=== PATIENT | female | born 1945 | race Caucasian/White ===

== ENCOUNTER → 2017-11-08 15:08 | Outpatient (CLI) | payer MEDICARE, OTHER, SELFPAY ==
[2017-11-08 17:33] LABS: Hematocrit 40.2 % (37-47); Hemoglobin 12.8 g/dl (12.0-15.0); Mean Corp Hgb Conc 31.8 g/gl (32-36); Mean Corpuscular Hgb 29.8 pg (27.0-32.0); Mean Corpuscular Volume 93.7 fL (81-99); Mean Platelet Vol. 10.5 fl (6.2-12.0); Platelet Count 243 K/mm3 (150-450); RBC Distribution Width CV 12.8 % (11.6-14.6); RBC Distribution Width SD 43.8 fl (35.1-43.9); Red Blood Count 4.29 M/mm3 (4.2-5.4); White Blood Count 7.3 K/mm3 (4.4-11.0)
[2017-11-08 17:43] LABS: Prothrombin Time (Protime)PT. 12.8 SECONDS (11.7-14.9)
[2017-11-08 17:44] LABS: Partial Thromboplast Time 31.8 Seconds (24.1-36.2)
[2017-11-08 17:56] LABS: AST(SGOT) 20 U/L (15-37); Alanine Aminotransfer ALT/SGPT 25 U/L (13-56); Alkaline Phosphatase 143 U/L (45-117); Anion Gap 7 (5-15); BUN 25 mg/dL (7-18); BUN/Creat Ratio 26.6 RATIO (10-20); Calcium,Total 9.4 mg/dL (8.5-10.1); Chloride 106 mmol/L (98-107); Creatinine, Serum 0.94 mg/dL (0.55-1.02); EST Glomerular Filtration Rate 62 mL/min (>60); Est Glom Filt Rate - Afr Amer 75 mL/min (>60); Glucose 83 mg/dL (74-106); Potassium 4.2 mmol/L (3.5-5.1); Sodium Level 139 mmol/L (136-145)
[2017-11-08 18:03] LABS: Scan Indicated on CBC? Y/N NO
[2017-11-10 11:10] LABS: AFP, Tumor Marker 5.1 ng/mL (0.0-8.3)
== END ==
PROVIDERS: Family Provider Internal Medicine; PCP Internal Medicine; Visit Provider Internal Medicine Gastroenterology
DX: K74.5 Biliary cirrhosis, unspecified (principal)
CPT/HCPCS: 36415; 80053; 82105; 85027; 85610; 85730

== ENCOUNTER → 2018-06-26 12:14 | Outpatient (CLI) | payer MEDICARE, OTHER, SELFPAY ==
[2017-08-08 15:46] VITALS: BMI 29.2
== END ==
PROVIDERS: Family Provider Internal Medicine; PCP Internal Medicine; Referring Provider Physician Assistant; Visit Provider Physician Assistant
DX: L08.9 Local infection of the skin and subcutaneous tissue, unspecified (principal)
CPT/HCPCS: 87070; 87075; 87077; 87205

== ENCOUNTER → 2018-07-12 10:01 | Outpatient (CLI) | payer MEDICARE, OTHER, SELFPAY ==
[2017-08-08 15:46] VITALS: BMI 29.2
--- NOTE | 2018-07-12 10:05 | BI_ITS ---
MAMMOGRAPHY - BILATERAL SCREENING REASON FOR EXAM: Female, 72 years old. Routine annual screening examination. PERTINENT HISTORY: Mother with breast cancer. TECHNIQUE: Digital bilateral breast julius (3D mammographic acquisition) in the CC and MLO projections. 2-D mediolateral oblique (MLO) and craniocaudad (CC) views of both breasts were obtained. CAD: Full Field Digital Mammography with Computer Added Detection was performed. COMPARISON: Comparison is made with prior study dated June 27, 2017 and June 15, 2016. FINDINGS: Breast Composition: There are scattered areas of fibroglandular density. There are no dominant masses or suspicious calcifications. No other significant abnormalities are identified. There has been no significant change since the prior study. BI/SCREENING MAMM (CAD), BILAT IMPRESSION: Stable bilateral screening mammogram. Yearly follow-up mammogram recommended. (A) ASSESSMENT CATEGORY: BIRADS Category 1: Negative. A letter regarding these results will be sent to the patient by the facility within 30 days. Approximately 10% of breast cancers are not detected by mammography. A normal mammogram should not delay biopsy of a clinically suspicious abnormality. [id number] Electronically Signed: Geovani Orlando MD at 11:25 EST , Service support ,
== END ==
PROVIDERS: Family Provider Internal Medicine; PCP Internal Medicine; Referring Provider Obstetrics & Gynecology; Visit Provider Obstetrics & Gynecology
DX: Z12.31 Encounter for screening mammogram for malignant neoplasm of breast (principal)
CPT/HCPCS: 77063; 77067

== ENCOUNTER → 2018-10-31 08:42 | Outpatient (CLI) | payer MEDICARE, OTHER, SELFPAY ==
[2018-07-17 10:27] VITALS: BMI 29.2
[2018-10-31 10:17] LABS: Absolute Lymphocyte Count 1.57 X10^3/ul (0.83-4.51); Absolute Neutrophil Count 2.8 X10^3/uL (2.0-7.7); Basophil# 0.01 X10^3/uL; Basophil% 0.2 % (0-1); Eosinophil# 0.06 X10^3/uL; Eosinophils% 1.3 % (0-5); Hematocrit 43.5 % (37-47); Hemoglobin 14.1 g/dl (12.0-15.0); Lymphocyte # 1.57 X10^3/ul (4.0); Lymphocyte % 33.3 % (19-41); Mean Corp Hgb Conc 32.4 g/gl (32-36); Mean Corpuscular Hgb 30.1 pg (27.0-32.0); Mean Corpuscular Volume 92.9 fL (81-99); Mean Platelet Vol. 10.2 fl (6.2-12.0); Monocyte# 0.32 X10^3/uL; Monocyte% 6.8 % (0-10); Neutrophil # 2.75 X10^3/uL (2.7-7.7); Neutrophil % 58.2 % (47-70); POSITIVE COUNT NO; POSITIVE DIFFERENTIAL NO; POSITIVE MORPHOLOGY NO; Platelet Count 223 K/mm3 (150-450); RBC Distribution Width CV 12.8 % (11.6-14.6); RBC Distribution Width SD 42.5 fl (35.1-43.9); Red Blood Count 4.68 M/mm3 (4.2-5.4); White Blood Count 4.7 K/mm3 (4.4-11.0)
[2018-10-31 10:21] LABS: Prothrombin Time (Protime)PT. 13.3 SECONDS (11.7-14.9)
[2018-10-31 10:22] LABS: Partial Thromboplast Time 30.9 Seconds (24.1-36.2)
[2018-10-31 10:42] LABS: AST(SGOT) 23 U/L (15-37); Alanine Aminotransfer ALT/SGPT 28 U/L (13-56); Albumin, Serum 3.6 g/dL (3.2-5.0); Alkaline Phosphatase 123 U/L (45-117); Bilirubin, Direct 0.12 mg/dL (0.00-0.30); Globulin 4.7 g/dL (2.2-4.2); Protein, Total 8.3 g/dL (6.4-8.2)
[2018-11-01 12:19] LABS: AFP, Tumor Marker 4.8 ng/mL (0.0-8.3)
== END ==
PROVIDERS: Family Provider Internal Medicine; PCP Internal Medicine; Referring Provider Internal Medicine Gastroenterology; Visit Provider Internal Medicine Gastroenterology
DX: K74.3 Primary biliary cirrhosis (principal); R53.83 Other fatigue
CPT/HCPCS: 36415; 80076; 82105; 85025; 85610; 85730

== ENCOUNTER → 2019-06-08 10:29 | Outpatient (CLI) | payer MEDICARE, OTHER, SELFPAY ==
[2018-07-17 10:27] VITALS: BMI 29.2
[2019-06-11 13:09] LABS: AFP, Tumor Marker 4.8 ng/mL (0.0-8.3)
== END ==
PROVIDERS: Family Provider Internal Medicine; PCP Internal Medicine; Referring Provider Internal Medicine Gastroenterology; Visit Provider Internal Medicine Gastroenterology
DX: K74.5 Biliary cirrhosis, unspecified (principal); K74.60 Unspecified cirrhosis of liver
CPT/HCPCS: 36415; 82105

== ENCOUNTER → 2019-07-18 | Outpatient (CLI) | payer MEDICARE, OTHER, SELFPAY ==
[2018-07-17 10:27] VITALS: BMI 29.2
[2019-06-18 11:02] VITALS: BMI 29.2
--- NOTE | 2019-07-18 09:40 | BI_ITS ---
MAMMOGRAPHY - BILATERAL SCREENING REASON FOR EXAM: Female, 73 years old. Routine annual screening examination. PERTINENT HISTORY: Mother with breast cancer. Aunts with breast cancer. TECHNIQUE: Digital bilateral breast sonia (3D mammographic acquisition) in the CC and MLO projections. 2-D mediolateral oblique (MLO) and craniocaudad (CC) views of both breasts were obtained. CAD: Full Field Digital Mammography with Computer Added Detection was performed. COMPARISON: Comparison is made with prior examination dated July 12, 2018 and June 27, 2017. FINDINGS: Breast Composition: There are scattered areas of fibroglandular density. There are no dominant masses or suspicious calcifications. No other significant abnormalities are identified. There has been no significant change since the prior study. BI/SCREEN MAMM (CAD) W/SONIA BILAT IMPRESSION: Stable bilateral screening mammogram. Yearly follow-up mammogram recommended. (A) ASSESSMENT CATEGORY: BIRADS Category 1: Negative. A letter regarding these results will be sent to the patient by the facility within 30 days. Approximately 10% of breast cancers are not detected by mammography. A normal mammogram should not delay biopsy of a clinically suspicious abnormality. [id number] Electronically Signed: Geovani Orlando, at 15:15 EST , Service support ,
== END | disposition home or self-care (01) ==
LOC: OPBI 09:40
PROVIDERS: Family Provider Internal Medicine; PCP Internal Medicine; Referring Provider Nurse Practitioner Women's Health; Visit Provider Nurse Practitioner Women's Health
DX: Z12.31 Encounter for screening mammogram for malignant neoplasm of breast (principal)
CPT/HCPCS: 77063; 77067

== ENCOUNTER → 2019-11-15 | Outpatient (CLI) | payer MEDICARE, OTHER, SELFPAY ==
[2019-07-18 10:51] VITALS: BMI 29.2
[2019-11-17 12:48] LABS: AFP, Tumor Marker 4.6 ng/mL (0.0-8.3)
== END | disposition home or self-care (01) ==
LOC: MTLAB 11:32
PROVIDERS: PCP Internal Medicine; Referring Provider Internal Medicine Gastroenterology; Visit Provider Internal Medicine Gastroenterology
DX: K74.60 Unspecified cirrhosis of liver (principal); K74.5 Biliary cirrhosis, unspecified
CPT/HCPCS: 36415; 82105

== ENCOUNTER → 2020-04-11 12:46 | Outpatient (CLI) | payer MEDICARE, OTHER, SELFPAY ==
[2019-07-18 10:51] VITALS: BMI 29.2
--- NOTE | 2020-04-11 12:49 | CT_ITS ---
STUDY: CT RIGHT LOWER EXTREMITY WITHOUT CONTRAST REASON FOR EXAM: Female, 74 years old. Valgus deformity right knee, surgical planning for Makoplasty. Preoperative scan RADIATION DOSAGE (If Supplied By Facility): CTDIvol = ( 18.76 ) mGy, DLP = ( 1204.69 ) mGycm TECHNIQUE: Transaxial CT imaging of the knee was performed. Coronal and sagittal images were reformatted. Individualized dose optimization techniques were used for this CT. COMPARISON: None. FINDINGS: Preoperative dedicated planning scan was performed covering the hip knee and ankle. The hip is intact and located with minor age-related change. Particular soft tissues are normal. The knee is intact and located with moderate to severe lateral, mild to moderate medial and moderate patellofemoral compartment degenerative joint disease. There is subchondral degenerative sclerosis. Ankle is intact and located with moderate diffuse degenerative change in the crural and subtalar joints. CT/Extremity Lower without Contra IMPRESSION: 1. Moderate to severe knee degenerative joint disease. Electronically Signed: Corby Nunes, at 22:10 EDT Tel , Service support ,
== END ==
PROVIDERS: PCP Internal Medicine; Referring Provider Specialist; Visit Provider Specialist
DX: M21.061 Valgus deformity, not elsewhere classified, right knee (principal)
CPT/HCPCS: 73700

== ENCOUNTER 2020-04-30 09:38 | Observation (INO) | payer MEDICARE, OTHER, SELFPAY ==
[2019-07-18 10:51] VITALS: BMI 29.2
--- NOTE | 2020-04-11 12:56 | PCM.HP.BLA ---
History and Physical History and Physical [facility] Patient Name: Dana Cisse : 1945 From: TESSA EVANS PA-C DATE OF SURGERY: 04/30/2020 SCHEDULED PROCEDURE: right total knee arthroplasty HISTORY OF PRESENT ILLNESS: Preoperative history and physical exam was performed on April 11, 2020. This is a 74-year-old female who has been having ongoing pain in her right knee for several years. It has been increased over the past several months. Pain can reach 10/10 on the right with activity. Patient states her pain has been intermittent, aching, sharp, sore. Pain is increased with going up and down stairs and walking. Patient states she has difficult time with yardwork as well as bending her knee getting up and down. Right knee pain is worse than the left. It is located over the lateral joint line on the right. Pain does awaken her at night. Patient has attempted conservative measures consisting of rest, ice, elevation with minimal relief. She has had previous corticosteroid injections in the right knee with temporary relief. Patient has tried oral medications consisting of Tylenol. She has had previous surgery on the right knee with an arthroscopy. She denies any recent chest pain, shortness of breath, fevers chills, recent infections. She does have a medical history pertinent for atrial fibrillation in 2017 in which she underwent an ablation, hypercholesterolemia, and primary biliary cirrhosis. We have obtain surgical clearance from the laboratory apparatus glass blower Dr. Mojica and by primary care physician Dr. Elder. After failing conservative measures and discussing treatment options of Dr. Rnoald Andersen, the patient does wish to proceed with a right total knee arthroplasty. REVIEW OF SYSTEMS: ROS: Const: Denies anorexia, change in appetite, fever, hard of hearing, vision problems and weight change. CV: Denies chest pain, heart murmur, irregular heartbeat and peripheral vascular disease. Resp: Denies asthma, cough, pneumonia, sleep apnea, SOB, tuberculosis and wheezing. GI: Reports constipation, diarrhea and heartburn, but denies difficulty swallowing, nausea, bloody stools and vomiting. : Urinary: denies incontinence. Musculo: Denies leg swelling, limp, trouble walking and weakness. Skin: Denies Raynaud's, history of shingles and tattoo. Neuro: Denies ambulatory dysfunction, dizziness, numbness/tingling and tremor. Psych: Denies anxiety, depression, insomnia, mental illness and stress. Raymond/Lymph: Denies anemia, bleeding/bruising tendency and past transfusion. Reviewed, no changes. PAST MEDICAL HISTORY: Advance Care Plan: No Advance Directives Effective Date: 04/09/2016 PMH: Medical Problems: Arthritis, Hypercholesterolemia, Primary Biliary Cirrhois A-Fib - (2016) Accidents: Fracture - RT ANKLE ~ 1979- FELL Surgical Hx: Hysterectomy - (1982) [facility] Gallbladder - (1992) [facility] RT Knee Arthroscopy - (09/04/2010) [facility] @ [facility] Heart Ablation - (09/2016) Anesthesia Complications: None Assistive Devices: Glasses, Brace - RT Ankle Reviewed and updated. SOCIAL HISTORY: SH: Marital: .Occupation: Retired.Work Status: Retired.Hand Dominance: Right-handed. Personal Habits: Cigarette Use: Never Smoked Cigarettes.Alcohol: Denies use.Drug Use: Denies Use.Enjoy Exercising: Exercises 1-3 x/month. Reviewed, no changes. VITALS: Ht: 67 Wt: 189lb Wt k.730 BMI: 29.6 BP: 164/87 Pulse: 63 Resp: 16 T: 97.2 T: 36.2C Pain Level: 5 ALLERGIES: Feldene - Sick Neomycin - Rash Erythromycin - Rash Ceftin - Rash Fluress - Red Eyes MEDICATIONS: Multivitamins daily, Ursodiol 500 mg 1po tid, Pravastatin Sodium 40 mg 1 by mouth every day, Ocuvite 1po qday, Aspirin 81 mg 1 by mouth every day, Estradiol 0.1 mg/gm 2xweekly, Miralax 1 po qd PRE-OP EXAM: General appearance:NORMAL Other: Eyes: Conjunctivae and lids: NORMAL Pupils: ERR Ears, Nose, Mouth, and Throat: NORMAL Other: Inspection of lips, teeth and gums: NORMAL Other: Neck: Examination of neck: no masses noted. Respiratory: Assessment of respiratory effort: NORMAL Other: Auscultation of lungs: clear to auscultation no wheezes, rhonchi or rales. Cardiovascular: Auscultation of heart: regular rate and rhythm, no murmurs, gallops or rubs. Exam of carotid arteries: NORMAL Other: Gastrointestinal: Exam of abdomen: soft, nontender, nondistended bowel sounds present. PHYSICAL EXAMINATION: Patient walks with an antalgic gait. Right knee is cool to touch without erythema or signs of infection. She has trace effusion on the right knee. Range of motion: Lacks 5 of full extension to 100 flexion. She has 22 valgus deformity which is not correctable. Sensation intact to light touch. Neurovascularly intact. Patient has tenderness to palpation over the lateral joint line. IMAGING STUDIES: Previous x-rays of the right knee reveal valgus alignment with lateral joint space narrowing, subchondral sclerosis, osteophyte formation consistent with severe stage IV osteoarthritis with bony erosion of the lateral tibial plateau. IMPRESSION: 1. Severe right knee osteoarthritis 2. Left knee osteoarthritis 3. History of atrial fibrillation 2017 with ablation 4. Hypercholesterolemia 5. Primary biliary cirrhosis PLAN: Dr. Ronald Andersen did discuss and review with the patient all treatment options including surgical versus nonsurgical options. Patient does wish to proceed with the above-stated procedure. Potential risks, benefits, and complications of the procedure were discussed in detail including but not limited to , infection, nerve and blood vessel damage, persistent pain, numbness, tingling, paresthesias, blood clot, pulmonary embolism, and requirement for possible further surgery. The patient expressed full understanding and has no further questions for the doctor. Patient does agree to proceed with the above-stated procedure and has signed the surgery consent form. We discussed the current risks associated with COVID 19. This does include the risk of exposure while in the hospital. Patient was reassured local hospitals have low infection rates and are taking all necessary precautions to avoid exposure to patients. In addition, we discussed strategies that can be used to help limit exposure including those that limit the patient's time in the hospital. Also using strategies to limit the patient's need for continued inpatient services after being discharged from the hospital. Patient was notified that we will need to comply with any screening or testing the hospital wishes to perform or that surgery may be delayed for any positive results. This dictation was created using voice recognition software. Phonetic and/or grammatical errors may exist. ___ I have re-examined the patient. There are no clinical changes since date of exam. ___ See progress notes for changes. ___ Dictated on admission Date: Time: Signature:
[2020-04-17 10:37] LABS: Absolute Lymphocyte Count 1.52 X10^3/uL (0.83-4.51); Absolute Neutrophil Count 4.5 X10^3/uL (2.0-7.7); Basophil# 0.01 X10^3/uL; Basophil% 0.2 % (0-1); Eosinophil# 0.05 X10^3/uL; Eosinophils% 0.8 % (0-5); Hematocrit 41.4 % (37-47); Hemoglobin 12.9 g/dL (12.0-15.0); Lymphocyte # 1.52 X10^3/ul (4.0); Lymphocyte % 23.1 % (19-41); Mean Corp Hgb Conc 31.2 g/dL (32-36); Mean Corpuscular Hgb 30.8 pg (27.0-32.0); Mean Corpuscular Volume 98.8 fL (81-99); Mean Platelet Vol. 9.7 fl (6.2-12.0); Monocyte# 0.46 X10^3/uL; NRBC Flagged by Analyzer 0 % (0-5); Neutrophil # 4.53 X10^3/uL (2.7-7.7); Neutrophil % 68.6 % (47-70); Platelet Count 272 K/mm3 (150-450); RBC Distribution Width CV 12.2 % (11.6-14.6); RBC Distribution Width SD 44.4 fl (35.1-43.9); Red Blood Count 4.19 M/mm3 (4.2-5.4); White Blood Count 6.6 K/mm3 (4.4-11.0)
[2020-04-17 10:45] LABS: Prothrombin Time (Protime)PT. 12.3 SECONDS (11.7-14.9)
[2020-04-17 10:46] LABS: Partial Thromboplast Time 29.7 Seconds (24.1-36.2)
[2020-04-17 11:11] LABS: ALB/GLOB Ratio 0.8 RATIO (0.9-2.4); AST(SGOT) 22 U/L (15-37); Alanine Aminotransfer ALT/SGPT 36 U/L (13-56); Albumin, Serum 3.5 g/dL (3.2-5.0); Alkaline Phosphatase 156 U/L (45-117); Anion Gap 5 (5-15); BUN 26 mg/dL (7-18); BUN/Creat Ratio 28.7 RATIO (10-20); Calcium,Total 9.6 mg/dL (8.5-10.1); Chloride 105 mmol/L (98-107); Creatinine, Serum 0.91 mg/dL (0.55-1.02); EST Glomerular Filtration Rate 64 mL/min (>60); Est Glom Filt Rate - Afr Amer 78 mL/min (>60); Globulin 4.5 g/dL (2.2-4.2); Glucose 84 mg/dL (74-106); Magnesium 2.2 mg/dL (1.6-2.6); Potassium 4.2 mmol/L (3.5-5.1); Sodium Level 139 mmol/L (136-145)
[2020-04-30] VITALS (17 sets, daily range): BP systolic 106–149; BP diastolic 50–73; PULSE 58–87; RESP 16–18; TEMP 36.1–36.7; O2SAT 95–100; BMI 29.4; BMI 31.4
[2020-04-30] MEDS: Acetaminophen 500 MG Tablet 1000 MG PO ×3 (08:40→21:59)
[2020-04-30] MEDS: Gabapentin 600 MG Tablet PO (08:40)
[2020-04-30] MEDS: Lactated Ringers 1,000 ML 999 ML IV ×2 (08:58→11:33)
[2020-04-30 09:06] LABS: Bedside Glucose 98 mg/dL (70-110)
[2020-04-30] MEDS: Bupivacaine Mpf 0.5% 30 ML VIAL (09:13)
[2020-04-30] MEDS: Triamcinolone Acetonide 40 MG/ML Vial (09:13)
[2020-04-30] MEDS: Cefazolin 2 GM in 0.9% Normal Saline 100 ML IV (09:22)
--- NOTE | 2020-04-30 10:43 | OP.PCM_ITS ---
Report of Operation Date of Procedure: 04/30/20 Pre-Operative Diagnosis: Right knee primary osteoarthritis. Left knee primary osteoarthritis Post-Operative Diagnosis: Right knee primary osteoarthritis. Left knee primary osteoarthritis Surgery/Procedure Performed:: Right knee minimally invasive robotic assisted total knee replacement. Left knee corticosteroid injection Description of Surgical Findings:: Stable knee with good patella tracking. Valgus alignment was corrected broach operator: Nova Swanson Type of Anesthesia:: Spinal Anesthesiologist: Jarrett Larson Special Medications: 2 g Ancef, 1 g TXA at incision, 1 g TXA closure, 10 mg Decadron, joint cocktail (5 mg Duramorph, 30 mL of 0.5% Ropivicaine, 1000 units of epinephrine, 30 mg of Toradol). Left knee injection: 2 mL Kenalog, 3 mL 0.5% Marcaine Specimen's removed: Bony cuts Estimated Blood Loss (mL): 25 Fluids Replaced: 900 mL crystalloid Description of Procedure: Implants used: 1. [place] size 4 triathlon cruciate retaining distal femoral press-fit component 2. [place] size 5 press-fit tritanium tibial baseplate 3. [place] X3 9 mm CS polyethylene 4. [place] X3 29 mm asymmetric patella Brief history operative indications: 74-year-old F with history of bilateral knee osteoarthritis with radiographic findings with loss of joint space, osteophyte formation and subchondral sclerosis. Failed conservative measures as mentioned in the H&P. Discussion of total knee arthroplasty on the right and corticosteroid injection on the left as well as risk and benefits were discussed the patient including but not limited to blood loss, DVTs, PEs, neurovascular damage, general risk of anesthesia including loss of life, and stiffness or instability were discussed with patient. Patient demonstrated understanding and was able to sign informed consent. Procedure: On the date of procedure patient's right lower extremity was marked in the preoperative area. The patient was then taken back to the operating room where the patient was placed on the table in the supine position. All bony prominences were identified a well-padded. Anesthesia assumed control of the C-spine and airway and remained controlled throughout the remainder of the procedure. At this point our attention was directed towards the left knee. Lateral suprapatellar portal was palpated. It was then cleaned with alcohol. The medicine was drawn up. 22-gauge needle was used to sterilely inject the medication into the knee joint. Patient tolerated it well and a Band-Aid was placed. Attention was directed back to the right knee where A tourniquet was placed on the right upper thigh and the leg was prepped in a sterile fashion. The surgeon then scrubbed at this time .Upon reentering the room right lower extremity was draped in a standard orthopedic fashion. A timeout was then called and everyone agreed upon the side, the site, the procedure to be performed, patient's identity and antibiotics given. Esmarch bandage was used to exsanguinate the extremity and the tourniquet was placed up to 250 mmHg with the knee in flexion. A midline skin incision was made and sharp dissection was taken down through skin subcutaneous tissue and fat. The standard medial parapatellar incision was made and the patella was subluxed laterally. An Appropriate deep MCL release was done and the fat pad was resected. Our attention was then directed to the patella. The patella was everted and a flat resection was made. The knee was then flexed up in 2 femoral pins were placed inside the incision and 2 tibial pins were placed outside the incision in the medial tibia bicortically. Once this was completed the 2 checkpoints in the femur and tibia were placed. Knee was then flexed up and the bony landmarks were registered. Once this was completed knee was taken through range of motion and manually stressed allowing us to a plan for an appropriate tibial cut. The robotic arm was brought into the field sterilely and checkpoint and saw were registered. Based on the patient's deformity the tibial cut was made in neutral position. At this time the tensioner was then placed in the joint and ligament tension was checked at 90 degrees and full extension. Based on the patient's ligamentous te nsion appropriate adjustments were made to the operative plan and ligament releases were done. Once we were happy with our operative plan with balanced flexion and extension gaps our attention was directed to the femur. The robot was brought into the field sterilely and registered. Posterior condylar cuts, anterior chamfer cuts and anterior cuts were appropriately made for a size 4 femur. When these were completed the saws were switched out in the distal femoral and posterior chamfer cuts were made. Protecting the soft tissue throughout this time. A size 5 tibial base plate was selected. the knee was flexed to 90 degrees and the soft tissues and posterior osteophytes were removed from the joint. 40 cc of the periarticular injection was injected into the posterior medial corner of the joint. The appropriate trials were then placed on the femur and tibia. A trial polyethylene was trialed to ensure proper balancing and stability of the knee. The appropriate tibial internal rotation was then marked with a bovie. Our attention was then directed to the patella. The lug holes were drilled and the patella trial was placed. Patellar tracking was checked and deemed appropriate. Once we were happy lug holes were drilled for the femur and trial components were removed. the tibia was subluxed and pinned into place and the keel was punched and drilled appropriately. Final components were verified and opened, and cement was mixed in a vacuum. [employer] cement was used. The wound was copiously irrigated with normal saline. When the cement was ready the components were impacted into place starting with the tibia, femur and finally cementing the patella. The trial poly component was placed and the knee was placed in full extension. All excess cement was removed in the process. Once the cement had cured the tracking, alignment and balance were verified and a size 9 mm CS polyethylene component was placed. Once the final components were placed an Irrisept lavage was performed and the wound was copiously irrigated with normal saline solution and the periarticular injection was given. The wound was closed in a layer park fashion using #1 vicryl interrupted sutures for the arthrotomy, 2-0 interrupted Vicryl suture for the subcuticular layer and zee for final skin closure. A sterile compressive dressing was then placed. The patient was then awakened from anesthesia, transferred to the [facility] and transferred to the PACU for recovery. Post op plan DVT ppx: ASA 81mg BID, thigh high compression stockings Follow up: in office in 2 weeks for wound check PT: to start POD #0 at hospital, outpatient PT should be arranged. Due to the complexity of this case robotic arm was used to assist in the surgery to improve accuracy and clinical outcomes. - Complications No intraoperative complications - Admit VTE Documentation VTE Present on Admission: No VTE Mechan Device Prophylaxis: SCD's, Thigh High KENNEDI Hose VTE Pharm Prophylaxis ordered?: Yes
--- NOTE | 2020-04-30 11:13 | RAD_ITS ---
STUDY: X-RAY - RIGHT KNEE REASON FOR EXAM: Female, 74 years old. Post op TECHNIQUE: 2 view(s) of the knee. COMPARISON: None. FINDINGS: Normal visualized distal femur. Normal visualized proximal tibia and fibula. Normal proximal tibiofibular articulation. The patient is status post total knee replacement. There is good alignment. Postoperative soft tissue changes. RAD/Knee 1 or 2 Views IMPRESSION: Status post total knee replacement. There is good alignment. Postoperative soft tissue changes. Electronically Signed: Geovani Orlando, at 11:55 EST , Service support ,
[2020-04-30] MEDS: Lactated Ringers 1,000 ML 125 ML IV ×2 (13:22→20:36)
[2020-04-30] MEDS: Ursodiol 250 MG Tablet 500 MG PO ×2 (13:26→20:35)
[2020-04-30] MEDS: Famotidine 20 MG Tablet PO (13:27)
--- NOTE | 2020-04-30 15:04 | PN_ITS ---
Subjective: Patient is a 74-year-old female.extensive past medical history as outlined was admitted to the orthopedic service on 04/30/2020 for right knee arthroplasty. Patient had surgery on 04/30/2020 and hospitalist service was consulted for medical management. Patient was seen and examined after she had the procedure. Pain was well controlled. She had no complaints. Review of symptoms otherwise negative. She has remained hemodynamically stable. Vitals/I&O's: Vital Signs Temp Pulse Resp BP Pulse Ox 98.0 F 63 18 138/73 H 95 04/30/20 13:17 04/30/20 13:17 04/30/20 13:17 04/30/20 13:17 04/30/20 13:17 Oxygen Flow Rate (L/min) 6 Oxygen Delivery Method Room Air Weight: 200 lb 9.93 oz Body Mass Index (BMI) 31.4 Intake and Output for Last 24 Hours 04/28/20 04/29/20 04/30/20 23:59 23:59 23:59 Intake Total 1435 / 1435 Balance 1435 / 1435 General: Alert, Oriented x3, Cooperative, No apparent distress HEENT: Atraumatic, PERRLA, EOMI, Normocephalic Oral: Dry Mucosa Neck: Supple, No JVD, Negative Carotid Bruits Lungs: Clear to auscultation, Normal air movement, No rhonchi, No wheeze, No rales Cardiovascular: Regular rate, Regular Rhythm, Normal S1, Normal S2, No murmurs Abdomen: Bowel Sounds Present, Soft, Non Tender, Non-Distended, No Hepato- splenomegaly Extremities: No clubbing, No cyanosis, No edema, Capillary Refill Less than 3 Seconds Skin: No rashes, No breakdown Musculoskeletal: No Tenderness to Palpation of Joints or Extremities, - - right knee dressing in place. Lymphatic: No Cervical, Supraclavicular, or Inguinal Adenopathy Neurological: Cranial nerves II-XII grossly intact, Neuro grossly intact, Motor Exam 5/5 strength throughout Psych/Mental Status: Normal Affect, Appropriate, Alert and oriented to time, place, person, mood and affect Microbiology Past 72 Hours 04/29/20 14:20 Interface Orders SARS-CoV-2 Antigen (Rapid) - Final Laboratory Results 04/30/20 08:12: POC Glucose 98 Current Medications Acetaminophen (Acetaminophen 500 Mg Tablet) 1,000 mg PO Q8 [facility] Last Admin: 04/30/20 13:27 Dose: 1,000 mg Documented by: Aspirin (Aspirin 81 Mg Tab.Chew) [facility] Enteral Nutritional Formula (Ensure Surgery 237 Ml Liquid) 237 ml PO TIDCM [facility] Last Admin: 04/30/20 13:22 Dose: Not Given Documented by: Famotidine (Famotidine 20 Mg Tablet) 20 mg PO DAILY [facility] Last Admin: 04/30/20 13:27 Dose: 20 mg Documented by: Lactated Ringer's () 1,000 mls @ 125 mls/hr IV .Q8H [facility] Last Admin: 04/30/20 13:22 Dose: 125 mls/hr Documented by: Cefazolin Sodium () 1 gm in 50 mls @ 150 mls/hr IV Q8H [facility] Stop: 05/01/20 01:19 Insulin Human Lispro (Insulin Lispro 100 Unit/Ml Insuln.Pen) 1 - 6 unit SC Q4H PRN PRN; Protocol PRN Reason: BG>/= 180, SEE PROTOCOL Meloxicam (Meloxicam 7.5 Mg Tablet) 7.5 mg PO BID [facility] Morphine Sulfate (Morphine 2 Mg/Ml Syringe) 2 - 4 mg IV Q2H PRN PRN PRN Reason: Pain Score 6-10 Ondansetron HCl (Ondansetron 4 Mg/2 Ml Vial) 4 mg IV Q8H PRN PRN PRN Reason: NAUSEA Oxycodone HCl (Oxycodone 5 Mg Tablet) 5 - 10 mg PO Q4H PRN PRN PRN Reason: Pain Score 4-10 Polyethylene Glycol (Polyethylene Glycol 3350 17 Gm Packet) 17 gm PO QHS [facility] Pravastatin Sodium (Pravastatin 40 Mg Tablet) 40 mg PO QHS [facility] Promethazine HCl (Promethazine 25 Mg/Ml Syringe) 12.5 mg IM Q6H PRN PRN; Protocol PRN Reason: NAUSEA/VOMITING Senna/Docusate Sodium (Senna/Docusate Sodium 1 Tablet) 2 tablet PO BID [facility] Last Admin: 04/30/20 13:25 Dose: Not Given Documented by: Sodium Chloride (0.9% Saline Lock 10 Ml Syringe) 10 - 40 ml IV UD PRN PRN Reason: SALINE FLUSH Ursodiol (Ursodiol 250 Mg Tablet) 500 mg PO TID [facility] Last Admin: 04/30/20 13:26 Dose: 500 mg Documented by: STROKE Vital Signs/Narrative: Vital Signs Temp Pulse Resp BP Pulse Ox 04/30/20 13:17 98.0 F 63 18 138/73 H 95 04/30/20 12:50 97.0 F L 74 16 129/65 H 100 04/30/20 12:45 73 16 127/59 H 100 04/30/20 12:30 75 16 122/61 H 100 04/30/20 12:15 72 16 125/58 H 100 04/30/20 12:00 70 16 124/72 H 100 04/30/20 11:45 68 16 119/63 100 04/30/20 11:30 58 L 16 113/58 L 100 04/30/20 11:15 64 16 106/53 L 100 Medical Necessity - Tobacco Use Smoking Status: Never smoker Assessment/Plan All Active Problems (Last Reviewed 07/18/19 @ 10:24 by Mojgan Mendez) Family history of breast cancer in mother (Acute) Lichen sclerosus (Acute) # RIght knee arthritis s/p right knee arthroplasty * today is POD 0 * patient tolerated procedure well. * pain management as per orthopedics * PT/OT on board * fall precautions * incentive spirometry' * #Afib: s/p ablation in 2017. # Hyperlipidemia:on pravastatin. #Primary biliary cirrhosis: on ursodiol. DVT prophylaxis: as per orthopedics, on aspirin 81mg bid Thank you for the courtesy of the consult. Please contact the hospitalist service with any questions or concerns. Inpatient E&M: 83349 Subs Hosp L2
[2020-04-30] MEDS: Aspirin 81 MG TAB.CHEW PO (16:55)
[2020-04-30] MEDS: Cefazolin 1 GM/50 ML BAG IV (16:55)
[2020-04-30] MEDS: Ensure Surgery 237 ML LIQUID PO (16:55)
[2020-04-30] MEDS: Polyethylene Glycol 3350 17 GM PACKET PO (21:54)
[2020-04-30] MEDS: Pravastatin 40 MG Tablet PO (21:59)
[2020-04-30] MEDS: Senna/Docusate Sodium 1 Tablet 2 TABLET PO (21:59)
[2020-05-01] MEDS: Cefazolin 1 GM/50 ML BAG IV (00:57)
[2020-05-01 03:37] VITALS: BP 146/63; PULSE 53; RESP 18; TEMP 36.6; O2SAT 99
[2020-05-01] MEDS: Lactated Ringers 1,000 ML 125 ML IV (03:50)
[2020-05-01 06:28] LABS: Anion Gap 5 (5-15); BUN 19 mg/dL (7-18); BUN/Creat Ratio 24.9 RATIO (10-20); Calcium,Total 8.8 mg/dL (8.5-10.1); Chloride 113 mmol/L (98-107); Creatinine, Serum 0.76 mg/dL (0.55-1.02); EST Glomerular Filtration Rate 79 mL/min (>60); Est Glom Filt Rate - Afr Amer 95 mL/min (>60); Glucose 128 mg/dL (74-106); Potassium 4.9 mmol/L (3.5-5.1); Sodium Level 139 mmol/L (136-145)
[2020-05-01] MEDS: Acetaminophen 500 MG Tablet 1000 MG PO ×2 (06:30→14:03)
[2020-05-01] MEDS: 0.9% Saline Lock 10 ML Syringe IV (07:04)
[2020-05-01 07:17] LABS: Absolute Lymphocyte Count 0.84 X10^3/uL (0.83-4.51); Absolute Neutrophil Count 14.2 X10^3/uL (2.0-7.7); Basophil# 0.01 X10^3/uL; Basophil% 0.1 % (0-1); Hematocrit 37.1 % (37-47); Hemoglobin 11.9 g/dL (12.0-15.0); Lymphocyte # 0.84 X10^3/ul (4.0); Lymphocyte % 5.2 % (19-41); Mean Corp Hgb Conc 32.1 g/dL (32-36); Mean Corpuscular Hgb 31.6 pg (27.0-32.0); Mean Corpuscular Volume 98.4 fL (81-99); Mean Platelet Vol. 9.7 fl (6.2-12.0); Monocyte# 1.09 X10^3/uL; Monocyte% 6.7 % (0-10); NRBC Flagged by Analyzer 0 % (0-5); Neutrophil % 87.6 % (47-70); Platelet Count 247 K/mm3 (150-450); RBC Distribution Width CV 12.2 % (11.6-14.6); RBC Distribution Width SD 44.2 fl (35.1-43.9); Red Blood Count 3.77 M/mm3 (4.2-5.4); White Blood Count 16.2 K/mm3 (4.4-11.0)
--- NOTE | 2020-05-01 07:46 | PN_ITS ---
Reason for Visit: Status post right total knee arthroplasty Subjective: Patient is a 74-year-old lady who underwent right total knee arthroplasty on 04/30/[address] Andersen and hospitalist service was consulted to assist with management of patient medical comorbidities Objective: GENERAL: cooperative HEENT: Atraumatic; EYES; Anicteric, Normal Conjunctiva NECK; supple, normal thyroid, RESPIRATORY: Diminished to auscultation CARDIOVASCULAR: Regular S1 S2, GI: soft, normoactive bowel sounds, : No Renal angle tenderness; EXTREMITIES: No edema, no clubbing, MUSCULOSKELETAL: Right knee in surgical dressing NEURO: Awake; no lateralizing signs. SKIN: No Rash PSYCH; Flat affect Vitals/I&O's: Vital Signs Temp Pulse Resp BP Pulse Ox 97.9 F 53 L 18 146/63 H 99 05/01/20 03:37 05/01/20 03:37 05/01/20 03:37 05/01/20 03:37 05/01/20 03:37 Oxygen Flow Rate (L/min) 6 Oxygen Delivery Method Room Air Weight: 91 kg Body Mass Index (BMI) 31.4 Intake and Output for Last 24 Hours 04/29/20 04/30/20 05/01/20 23:59 23:59 23:59 Intake Total 4339.17 / 4339.17 1804.17 / 1804.17 Balance 4339.17 / 4339.17 1804.17 / 1804.17 Microbiology Past 72 Hours 04/29/20 14:20 Interface Orders SARS-CoV-2 Antigen (Rapid) - Final Laboratory Results 04/30/20 08:12: POC Glucose 98 05/01/20 05:10: WBC Cancelled, Corrected WBC Cancelled, RBC Cancelled, Hgb Cancelled, Hct Cancelled, MCV Cancelled, MCH Cancelled, MCHC Cancelled, RDW Std Deviation Cancelled, RDW Coeff of Ori Cancelled, Plt Count Cancelled, MPV Cancelled, Diff Path Review Cancelled 05/01/20 05:10: Sodium 139, Potassium 4.9, Chloride 113 H, Carbon Dioxide 21.0, Anion Gap 5, BUN 19 H, Creatinine 0.76, Estim Creat Clear Calc 48.00, Est GFR (MDRD) Af Amer 95, Est GFR (MDRD) Non-Af 79, BUN/Creatinine Ratio 24.9 H, Glucose 128 H, Calcium 8.8 05/01/20 07:06: WBC 16.2 H, RBC 3.77 L, Hgb 11.9 L, Hct 37.1, MCV 98.4, MCH 31.6, MCHC 32.1, RDW Std Deviation 44.2 H, RDW Coeff of Ori 12.2, Plt Count 247, MPV 9.7, Immature Gran % (Auto) 0.400, Neut % (Auto) 87.6 H, Lymph % (Auto) 5.2 L, [place] % (Auto) 6.7, Eos % (Auto) 0.0, Baso % (Auto) 0.1, Absolute Neuts (auto) 14.2 H, Absolute Lymphs (auto) 0.84, Nucleated RBC % 0 Current Medications Acetaminophen (Acetaminophen 500 Mg Tablet) 1,000 mg PO Q8 [facility] Last Admin: 05/01/20 06:30 Dose: 1,000 mg Documented by: Aspirin (Aspirin 81 Mg Tab.Chew) 81 mg PO BIDCM [facility] Last Admin: 04/30/20 16:55 Dose: 81 mg Documented by: Enteral Nutritional Formula (Ensure Surgery 237 Ml Liquid) 237 ml PO TIDCM [facility] Last Admin: 04/30/20 16:55 Dose: 237 ml Documented by: Famotidine (Famotidine 20 Mg Tablet) 20 mg PO DAILY [facility] Last Admin: 04/30/20 13:27 Dose: 20 mg Documented by: Insulin Human Lispro (Insulin Lispro 100 Unit/Ml Insuln.Pen) 1 - 6 unit SC Q4H PRN PRN; Protocol PRN Reason: BG>/= 180, SEE PROTOCOL Meloxicam (Meloxicam 7.5 Mg Tablet) 7.5 mg PO BID [facility] Morphine Sulfate (Morphine 2 Mg/Ml Syringe) 2 - 4 mg IV Q2H PRN PRN PRN Reason: Pain Score 6-10 Ondansetron HCl (Ondansetron 4 Mg/2 Ml Vial) 4 mg IV Q8H PRN PRN PRN Reason: NAUSEA Oxycodone HCl (Oxycodone 5 Mg Tablet) 5 - 10 mg PO Q4H PRN PRN PRN Reason: Pain Score 4-10 Polyethylene Glycol (Polyethylene Glycol 3350 17 Gm Packet) 17 gm PO QHS [facility] Last Admin: 04/30/20 21:54 Dose: 17 gm Documented by: Pravastatin Sodium (Pravastatin 40 Mg Tablet) 40 mg PO QHS [facility] Last Admin: 04/30/20 21:59 Dose: 40 mg Documented by: Promethazine HCl (Promethazine 25 Mg/Ml Syringe) 12.5 mg IM Q6H PRN PRN; Protocol PRN Reason: NAUSEA/VOMITING Senna/Docusate Sodium (Senna/Docusate Sodium 1 Tablet) 2 tablet PO BID [facility] Last Admin: 04/30/20 21:59 Dose: 2 tablet Documented by: Sodium Chloride (0.9% Saline Lock 10 Ml Syringe) 10 - 40 ml IV UD PRN PRN Reason: SALINE FLUSH Last Admin: 05/01/20 07:04 Dose: 10 ml Documented by: Ursodiol (Ursodiol 250 Mg Tablet) 500 mg PO TIDCM [facility] Last Admin: 04/30/20 20:35 Dose: 500 mg Documented by: Medical Necessity - Tobacco Use Smoking Status: Never smoker Assessment/Plan All Active Problems (Last Reviewed 07/18/19 @ 10:24 by Mojgan Mendez) Family history of breast cancer in mother (Acute) Lichen sclerosus (Acute) 1. Status post right total knee arthroplasty ?Patient is procedure was performed on 04/30/[address] Andersen. Patient postoperative orders regarding pain management, DVT prophylaxis as well as PT OT addressed by primary service 2. History of A. fib status post ablation in 2016 3. Dyslipidemia -Patient is on statin therapy, continued at home dose 4. Irritable bowel syndrome ?Symptomatic treatment 5. History of primary biliary cirrhosis ?Patient is on Ursodiol continued 6. DVT prophylaxis -as per primary service patient on aspirin 81 mg p.o. twice daily Inpatient E&M: 20621 [facility] L2
[2020-05-01] MEDS: Ursodiol 250 MG Tablet 500 MG PO (08:18)
[2020-05-01] MEDS: Famotidine 20 MG Tablet PO (08:18)
[2020-05-01] MEDS: Aspirin 81 MG TAB.CHEW PO (08:19)
[2020-05-01 08:20] VITALS: BP 132/59; PULSE 61; RESP 16; TEMP 36.7; O2SAT 97
--- NOTE | 2020-05-01 09:21 | PCM.PN.ORT ---
Subjective: The patient was sitting in bed upon examination. Patient denies any chest pain, shortness of breath, dizziness, lightheadedness, nausea or vomiting, or calf pain. Pain is controlled on medications. No adverse overnight events. Overall patient is doing very well and has no significant pain in the knee. She did receive a postoperative block and I did explain to her that this can wear off over the first 24 hours. She did voice understanding. Patient is doing well and wishes to go home today Objective: Vital signs stable and afebrile. Patient is able to plantarflex and dorsiflex actively. Sensation is intact to light touch to saphenous, sural, superficial and deep peroneal, and tibial distribution. Dressing is clean dry and intact. Negative Homans bilaterally, negative signs and symptoms of DVT. - Physical Exam Vitals/I&O's: Vital Signs Temp Pulse Resp BP Pulse Ox 97.9 F 53 L 18 146/63 H 99 05/01/20 03:37 05/01/20 03:37 05/01/20 03:37 05/01/20 03:37 05/01/20 03:37 Oxygen Flow Rate (L/min) 6 Oxygen Delivery Method Room Air Weight: 91 kg Body Mass Index (BMI) 31.4 Intake and Output for Last 24 Hours 04/29/20 04/30/20 05/01/20 23:59 23:59 23:59 Intake Total 4339.17 / 4339.17 1804.17 / 1804.17 Balance 4339.17 / 4339.17 1804.17 / 1804.17 General: Alert, Oriented x3, Cooperative, No apparent distress Microbiology Past 72 Hours 04/29/20 14:20 Interface Orders SARS-CoV-2 Antigen (Rapid) - Final Laboratory Results 05/01/20 05:10: WBC Cancelled, Corrected WBC Cancelled, RBC Cancelled, Hgb Cancelled, Hct Cancelled, MCV Cancelled, MCH Cancelled, MCHC Cancelled, RDW Std Deviation Cancelled, RDW Coeff of Ori Cancelled, Plt Count Cancelled, MPV Cancelled, Diff Path Review Cancelled 05/01/20 05:10: Sodium 139, Potassium 4.9, Chloride 113 H, Carbon Dioxide 21.0, Anion Gap 5, BUN 19 H, Creatinine 0.76, Estim Creat Clear Calc 48.00, Est GFR (MDRD) Af Amer 95, Est GFR (MDRD) Non-Af 79, BUN/Creatinine Ratio 24.9 H, Glucose 128 H, Calcium 8.8 05/01/20 07:06: WBC 16.2 H, RBC 3.77 L, Hgb 11.9 L, Hct 37.1, MCV 98.4, MCH 31.6, MCHC 32.1, RDW Std Deviation 44.2 H, RDW Coeff of Ori 12.2, Plt Count 247, MPV 9.7, Immature Gran % (Auto) 0.400, Neut % (Auto) 87.6 H, Lymph % (Auto) 5.2 L, [place] % (Auto) 6.7, Eos % (Auto) 0.0, Baso % (Auto) 0.1, Absolute Neuts (auto) 14.2 H, Absolute Lymphs (auto) 0.84, Nucleated RBC % 0 Current Medications Acetaminophen (Acetaminophen 500 Mg Tablet) 1,000 mg PO Q8 [facility] Last Admin: 05/01/20 06:30 Dose: 1,000 mg Documented by: Aspirin (Aspirin 81 Mg Tab.Chew) 81 mg PO BIDCM [facility] Last Admin: 05/01/20 08:19 Dose: 81 mg Documented by: Enteral Nutritional Formula (Ensure Surgery 237 Ml Liquid) 237 ml PO TIDCM [facility] Last Admin: 05/01/20 08:20 Dose: Not Given Documented by: Famotidine (Famotidine 20 Mg Tablet) 20 mg PO DAILY [facility] Last Admin: 05/01/20 08:18 Dose: 20 mg Documented by: Insulin Human Lispro (Insulin Lispro 100 Unit/Ml Insuln.Pen) 1 - 6 unit SC Q4H PRN PRN; Protocol PRN Reason: BG>/= 180, SEE PROTOCOL Meloxicam (Meloxicam 7.5 Mg Tablet) 7.5 mg PO BID [facility] Morphine Sulfate (Morphine 2 Mg/Ml Syringe) 2 - 4 mg IV Q2H PRN PRN PRN Reason: Pain Score 6-10 Ondansetron HCl (Ondansetron 4 Mg/2 Ml Vial) 4 mg IV Q8H PRN PRN PRN Reason: NAUSEA Oxycodone HCl (Oxycodone 5 Mg Tablet) 5 - 10 mg PO Q4H PRN PRN PRN Reason: Pain Score 4-10 Polyethylene Glycol (Polyethylene Glycol 3350 17 Gm Packet) 17 gm PO QHS [facility] Last Admin: 04/30/20 21:54 Dose: 17 gm Documented by: Pravastatin Sodium (Pravastatin 40 Mg Tablet) 40 mg PO QHS [facility] Last Admin: 04/30/20 21:59 Dose: 40 mg Documented by: Promethazine HCl (Promethazine 25 Mg/Ml Syringe) 12.5 mg IM Q6H PRN PRN; Protocol PRN Reason: NAUSEA/VOMITING Senna/Docusate Sodium (Senna/Docusate Sodium 1 Tablet) 2 tablet PO BID [facility] Last Admin: 05/01/20 08:19 Dose: Not Given Documented by: Sodium Chloride (0.9% Saline Lock 10 Ml Syringe) 10 - 40 ml IV UD PRN PRN Reason: SALINE FLUSH Last Admin: 05/01/20 07:04 Dose: 10 ml Documented by: Ursodiol (Ursodiol 250 Mg Tablet) 500 mg PO TIDCM [facility] Last Admin: 05/01/20 08:18 Dose: 500 mg Documented by: Medical Necessity - Tobacco Use Smoking Status: Never smoker Assessment/Plan All Active Problems (Last Reviewed 07/18/19 @ 10:24 by Mojgan Mendez) Family history of breast cancer in mother (Acute) Lichen sclerosus (Acute) 1. S/P right total knee arthroplasty POD #1 2. Continue Pain Medications: Tylenol, meloxicam, oxycodone 3. DVT Prophylaxis: Take 81 mg aspirin twice daily for 4 weeks postoperatively for DVT prophylaxis 4. PT/OT: Weightbearing as tolerated 5. H & H: 11.9/37.1, asymptomatic. Postoperative anemia secondary to acute blood loss from surgery without any intraoperative complications 6. Reactive leukocytosis: Currently 16.2, afebrile. Patient did receive Decadron intraoperatively 7. Encouraged Incentive Spirometry 8. Continue postoperative medical management per medicine 9. Disposition: Orthopedically stable, plan will be for discharge home today as long as pain is well controlled and patient tolerates physical therapy. Prescriptions will be E scribed to [facility]. Patient will follow-up per postop instructions. Patient has outpatient physical therapy established. I have reviewed the [place] Automated Rx Reporting System (OARRS) report for this patient for refill pattern and other prescriber involvement as part of the appropriate surveillance for the provision of acute and chronic controlled medications. The report was requested and reviewed on the date of this entry and was considered in the prescribing process.
--- NOTE | 2020-05-01 09:28 | DCINST_ITS ---
Discharge Diet: No Restrictions Discharge Activity: May Not Drive May shower in (days): 1 - Dressing must be intact to skin. Turn dressing away from water Ice area for (Minutes): 20 - every hour while awake. Weight Bearing Status: Weight bearing as tolerated Elevate: Operative Extremity Additional Activity Instructions:: Wear elastic stockings for 2 weeks after your surgery. Call your doctor if your incision/area has: Continuous Slow Oozing, Sudden Increased Bleeding, Increased Pain/ Swelling, Increased Redness, Foul Smelling Discharge Call your doctor if you observe: Fever of 101 or Higher, Coldness, Increased Pain, Numbness or Tingling, Change in Color, Calf discomfort, Uncontrolled pain Remove Dressing in (days):: 4 - Okay to remove dressing on May 05, 2020 Additional Instructions: Follow orthopedic postop instructions Allergies/Adverse Reactions: Allergies benoxinate [From Fluress] Allergy (Mild, Verified 04/30/20 08:19) Other cefuroxime [From Ceftin] Allergy (Mild, Verified 04/30/20 08:19) Other fluorescein [From Fluress] Allergy (Mild, Verified 04/30/20 08:19) Other neomycin Allergy (Mild, Verified 04/30/20 08:19) rash piroxicam [From Feldene] Allergy (Mild, Verified 04/30/20 08:19) Other adhesive tape Allergy (Verified 04/30/20 08:19) Rash bacitracin [From Polysporin] Allergy (Verified 04/30/20 08:19) Rash polymyxin B [From Polysporin] Allergy (Verified 04/30/20 08:19) Rash Medications to take at Discharge pravastatin 40 mg tablet 40 mg PO QHS 06/22/17 ursodiol 500 mg tablet 500 mg PO TIDCM 06/22/17 vit C,E,zinc,copper-[id number] 250 mg-lutein 5 mg-zeaxanthin 1 mg capsule 1 cap PO DAILY 06/22/17 Clobetasol Propionate 1 applic TOPICAL .COMPLEX 04/16/20 Estradiol See Rx Instructions VAGINAL .COMPLEX 04/16/20 Multivit-Min/FA/Lycopen/Lutein [Adults 50 Plus Daily Formula] 1 ea PO DAILY 04/16/20 Polyethylene Glycol 3350 [Miralax] 17 gm PO QHS 04/16/20 Acetaminophen [Tylenol] 1,000 mg PO Q8 #100 tab 05/01/20 Aspirin [Aspirin, Baby] 81 mg PO BIDCM tab.chew 05/01/20 Famotidine [Pepcid] 20 mg PO DAILY #30 tab 05/01/20 Meloxicam [Mobic] 7.5 mg PO BID #60 tab 05/01/20 Oxycodone [Oxyir] 5 - 10 mg PO Q4H PRN PRN 5 Days #60 tablet 05/01/20 The following prescriptions were given: Meloxicam [Mobic] 7.5 mg PO BID #60 tab Transmission Status: Pending to [facility] Oxycodone [Oxyir] 5 - 10 mg PO Q4H PRN PRN 5 Days #60 tablet PRN Reason: Pain Score 4-10 Transmission Status: Sent to [facility] Famotidine [Pepcid] 20 mg PO DAILY #30 tab Transmission Status: Pending to [facility] Acetaminophen [Tylenol] 1,000 mg PO Q8 #100 tab Transmission Status: Pending to [facility] Primary Care Physician: Sarah Elder MD [Primary Care Provider] - Test Results: Test results from this visit will be discussed in further detail at your follow- up appointment, if applicable. Please Follow Up With: [facility] When: 05/05/20 with Mckenna Please Follow Up With: Mikael Chowdary PA-C When: 05/14/20 @ 10:00 am
--- NOTE | 2020-05-01 09:45 | CASEMGMT ---
AVA BRASHER Face to Face with patient for initial transition planning/care coordination assessment. RN ANSHU introduced self and role at [facility]. Patient sitting in chair, alert and oriented. Patient willing to participate in assessment and is able to answer all questions appropriately. Care providers, pharmacy, and demographics verified. Patient wishes to discharge home and is setup with [facility] for outpatient therapy. Patient states she has no further needs or concerns at this time. CM to follow for discharge planning needs that may arise. PCP: Jerrod Specialists: cher Andersen; Izzy, public address system operator; Penny, senior manager mergers & acquisitions Preferred Pharmacy: [facility] Insurance: [employer] Prescription Benefit: yes Living Will/HPOA: none LNOK: Living Arrangements: Patient lives with in a 1.5 story home with bed and bath on main floor. Patient has 4 steps and railing to enter the home. Patient states she was independent at home prior to surgery Transportation: friend DME/HHC: Patient states she has raised toilet, cane, walker, grab bars at home. Patient is setup with [facility] for outpatient therapy starting on Tuesday. Disposition Plan: Patient to discharge home with outpatient therapy, family support, and follow-up plans in place. Jessica BARRETO, RN, CM
[2020-05-01] MEDS: oxyCODONE 5 MG Tablet PO ×2 (10:34→14:15)
--- NOTE | 2020-05-01 12:30 | PHA.DC.MC ---
Pharmacy Service has performed discharge medication reconciliation and counseling for this patient. 1. ACETAMINOPHEN 1000MG PO Q8H 2. ASPIRIN 81MG PO BIDCM 3. FAMOTIDINE 20MG PO DAILY 4. OXYCODONE 5-10MG PO Q4H PRN PAIN 4-10 5. MELOXICAM 7.5MG PO BID The patient's discharge medication list was reviewed for discrepancies and discrepancies were resolved. Home Medications pravastatin 40 mg tablet 40 mg PO QHS 06/22/17 ursodiol 500 mg tablet 500 mg PO TIDCM 06/22/17 vit C,E,zinc,copper-[id number] 250 mg-lutein 5 mg-zeaxanthin 1 mg capsule 1 cap PO DAILY 06/22/17 Clobetasol Propionate 1 applic TOPICAL .COMPLEX 04/16/20 Estradiol See Rx Instructions VAGINAL .COMPLEX 04/16/20 Multivit-Min/FA/Lycopen/Lutein [Adults 50 Plus Daily Formula] 1 ea PO DAILY 04/16/20 Polyethylene Glycol 3350 [Miralax] 17 gm PO QHS 04/16/20 Acetaminophen [Tylenol] 1,000 mg PO Q8 #100 tab 05/01/20 Aspirin [Aspirin, Baby] 81 mg PO BIDCM tab.chew 05/01/20 Famotidine [Pepcid] 20 mg PO DAILY #30 tab 05/01/20 Meloxicam [Mobic] 7.5 mg PO BID #60 tab 05/01/20 Oxycodone [Oxyir] 5 - 10 mg PO Q4H PRN PRN 5 Days #60 tab 05/01/20 The patient was counseled on the following discharge medications and changes in medications for homegoing were reviewed. The Reason for Use, instructions for use, and potential side effects were reviewed for all new medications. The patient's questions regarding all of their medications were answered. The patient was able to verbally demonstrate an understanding of their discharge medications.
[2020-05-01 14:05] VITALS: BP 134/59; PULSE 69; RESP 18; TEMP 36.7; O2SAT 97
== END 2020-05-01 14:22 | disposition home or self-care (01) ==
LOC: SDC 09:38 → MS3 09:38
PROVIDERS: Anesthesiology; Admitting Provider Specialist; PCP Internal Medicine; Referring Provider Specialist; Visit Provider Internal Medicine
PROC: 0SRC0JZ Replacement of Right Knee Joint with Synthetic Substitute, Open Approach (ICD-10-PCS; CPT 27447; principal; 2020-04-30 09:30)
DX: M17.0 Bilateral primary osteoarthritis of knee (principal); Z20.828 Contact with and (suspected) exposure to other viral communicable diseases; Z79.899 Other long term (current) drug therapy; Z79.82 Long term (current) use of aspirin; K74.3 Primary biliary cirrhosis; E78.00 Pure hypercholesterolemia, unspecified; I48.91 Unspecified atrial fibrillation; E78.5 Hyperlipidemia, unspecified; K58.9 Irritable bowel syndrome, unspecified; L90.0 Lichen sclerosus et atrophicus
CPT/HCPCS: 01400; 20610; 27447; 64447; S2900; 36415; 73560; 80048; 80053; 82962; 83735; 84100; 85025; 85610; 85730; 87081; 87426; 96361; 96365; 96366; 97110; 97116; 97162; 97166; 97535; 99218; 99251; C1776; C9803; J7120; A4216; G0378; G0379; G0463

== ENCOUNTER → 2020-07-21 10:11 | Outpatient (CLI) | payer MEDICARE, OTHER, SELFPAY ==
[2019-07-18 10:51] VITALS: BMI 29.2
[2020-07-21 09:42] VITALS: BMI 29.9
--- NOTE | 2020-07-21 10:16 | BI_ITS ---
MAMMOGRAPHY - BILATERAL SCREENING REASON FOR EXAM: Female, 74 years old. Routine annual screening examination. PERTINENT HISTORY: Mother with breast cancer. Aunt with breast cancer. TECHNIQUE: Digital bilateral breast sonia (3D mammographic acquisition) in the CC and MLO projections. 2-D mediolateral oblique (MLO) and craniocaudad (CC) views of both breasts were obtained. CAD: Full Field Digital Mammography with Computer Added Detection was performed. COMPARISON: Comparison is made with prior study dated 07/18/2019 and 07/12/2018. FINDINGS: Breast Composition: There are scattered areas of fibroglandular density. There are no dominant masses or suspicious calcifications. No other significant abnormalities are identified. There has been no significant change since the prior study. BI/SCRN MAMM (CAD)W/SONIA BILAT IMPRESSION: Stable bilateral screening mammogram. Yearly follow-up mammogram recommended. (A) ASSESSMENT CATEGORY: BIRADS Category 1: Negative. A letter regarding these results will be sent to the patient by the facility within 30 days. Approximately 10% of breast cancers are not detected by mammography. A normal mammogram should not delay biopsy of a clinically suspicious abnormality. [id number] Electronically Signed: Geovani Orlando MD at 11:27 EST , Service support ,
== END ==
PROVIDERS: PCP Internal Medicine; Referring Provider Nurse Practitioner Women's Health; Visit Provider Nurse Practitioner Women's Health
DX: Z12.31 Encounter for screening mammogram for malignant neoplasm of breast (principal)
CPT/HCPCS: 77063; 77067

== ENCOUNTER → 2020-08-05 10:18 | Outpatient (CLI) | payer MEDICARE, OTHER, SELFPAY ==
[2020-07-21 09:42] VITALS: BMI 29.9
--- NOTE | 2020-08-05 10:23 | BD_ITS ---
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 COMPARISON: Comparison is made with prior examination dated 06/30/2017. FINDINGS: Lumbar Spine (L1-L4): g/cm2 (1.292) / T-score (0.9) / Z-score (2.7) Findings are suggestive of normal bone density with a low fracture risk. Left Femur Total: g/cm2 (0.929) / T-score (-0.6) / Z-score (1.1) Left Femoral Neck: g/cm2 (0.829) / T-score (-1.5) / Z-score (0.4) Right Femur Total: g/cm2 (0.907) / T-score (-0.8) / Z-score (0.9) Right Femoral Neck: g/cm2 (0.822) / T-score (-1.6) / Z-score (0.3) The T-Scores on the most recent prior examination were: Lumbar Spine (L1-L4): There has been worsening of bone density since the previous examination. Left Femur Total: which represents a worsening of 6.1%. Right Femur Total: which represents a worsening of 0.4%. BD/Dexa Bone Density Study IMPRESSION: The patient is considered osteopenic as outlined below according to World [place] Organization (WHO) criteria with a moderate fracture risk. There has been worsening of bone density since the previous examination. Reference Information: The T-score is the number of standard deviations above or below the standard which is normal for young adults at their peak bone mineral density. The World Health Organization (WHO) interprets the T-scores as follows: Above -1 Normal bone density Between -1 and -2.5 Osteopenia Equal to / or below -2.5 Osteoporosis As a practical clinical guideline, osteopenia may be graded as follows: Mild -1 through -1.5 Moderate -1.6 through -2.0 Severe -2.1 through -2.4 The Z-score is the number of standard deviations above or below age-matched controls. A Z-score of less than -1.5 would be considered abnormal. References: 1. NIH Osteoporosis and Related Bone Diseases www osteo.org 2. International Society for Clinical Densitometry www iscd.org 3. National Osteoporosis Foundation www nof.org Electronically Signed: Geovani Orlando MD at 12:43 EST , Service support ,
== END ==
PROVIDERS: PCP Internal Medicine; Referring Provider Nurse Practitioner Women's Health; Visit Provider Nurse Practitioner Women's Health
DX: Z78.0 Asymptomatic menopausal state (principal)
CPT/HCPCS: 77080

== ENCOUNTER → 2020-12-30 08:13 | Outpatient (CLI) | payer MEDICARE, OTHER, SELFPAY ==
[2020-07-21 09:42] VITALS: BMI 29.9
--- NOTE | 2020-12-30 08:16 | US_ITS ---
STUDY: ABDOMINAL ULTRASOUND - RIGHT UPPER QUADRANT REASON FOR VISIT: Female, 75 years old primary biliary cirrhosis. Hx of cholecystectomy TECHNIQUE: Ultrasound evaluation of the right upper quadrant was performed with real-time and static villar-scale imaging. TECHNICAL QUALITY: Adequate. COMPARISON: Comparison is made with prior study dated 05/13/2016. FINDINGS: Liver: The liver measures 15.1 cm. There is increased echogenicity consistent with fatty infiltration. The bile ducts are within normal limits. There is hepatic color flow. The direction of portal flow is hepatopetal. There is no demonstrated mass lesion. Gallbladder: The patient is status post cholecystectomy. Common Bile Duct (C.B.D.): The common bile duct measures 3 mm. Pancreas: Normal size of the head, body and tail of the pancreas. There is increased echogenicity of the pancreas. There is no demonstrated pancreatic mass or cyst. Right Kidney: Normal size of the right kidney. The right kidney measures 11.5 cm x 5.7 cm x 4.7 cm. Normal renal cortex. The right cortex measures 1 cm. There is a 2.5 cm x 3.2 cm x 2.9 cm cyst in the inferior lateral aspect of the kidney. There is mild hydronephrosis of the right kidney. IMPRESSION: Fatty infiltration of the liver. Status post cholecystectomy. Right renal cyst. Mild right hydronephrosis. Electronically Signed: Geovani Orlando MD at 12:45 EDT , Service support , STUDY: ABDOMINAL ULTRASOUND - ELASTOGRAPHY REASON FOR VISIT: Female, 75 years old. Primary biliary cirrhosis. TECHNIQUE: Liver stiffness measurements were obtained on a Softricity 85 ultrasound machine using a CA 1-7 probe following the SRU guidelines. 3 measurements were obtained using a 2-D-SWE method. The IQR/M was 14% suggesting a quality data set. TECHNICAL QUALITY: Adequate. COMPARISON: Comparison is made with prior examination dated 05/13/2016. FINDINGS: Liver: Fatty infiltration of the liver. Median liver stiffness measured 10 kPa. US/Abdomen Limited IMPRESSION: Liver stiffness measures 10 kPa compatible with F3 Metavir score. Electronically Signed: Geovani Orlando MD at 12:52 EDT , Service support ,
--- NOTE | 2020-12-30 08:16 | US_ITS ---
STUDY: ABDOMINAL ULTRASOUND - RIGHT UPPER QUADRANT REASON FOR VISIT: Female, 75 years old primary biliary cirrhosis. Hx of cholecystectomy TECHNIQUE: Ultrasound evaluation of the right upper quadrant was performed with real-time and static villar-scale imaging. TECHNICAL QUALITY: Adequate. COMPARISON: Comparison is made with prior study dated 05/13/2016. FINDINGS: Liver: The liver measures 15.1 cm. There is increased echogenicity consistent with fatty infiltration. The bile ducts are within normal limits. There is hepatic color flow. The direction of portal flow is hepatopetal. There is no demonstrated mass lesion. Gallbladder: The patient is status post cholecystectomy. Common Bile Duct (C.B.D.): The common bile duct measures 3 mm. Pancreas: Normal size of the head, body and tail of the pancreas. There is increased echogenicity of the pancreas. There is no demonstrated pancreatic mass or cyst. Right Kidney: Normal size of the right kidney. The right kidney measures 11.5 cm x 5.7 cm x 4.7 cm. Normal renal cortex. The right cortex measures 1 cm. There is a 2.5 cm x 3.2 cm x 2.9 cm cyst in the inferior lateral aspect of the kidney. There is mild hydronephrosis of the right kidney. IMPRESSION: Fatty infiltration of the liver. Status post cholecystectomy. Right renal cyst. Mild right hydronephrosis. Electronically Signed: Geovani Orlando MD at 12:45 EDT , Service support , STUDY: ABDOMINAL ULTRASOUND - ELASTOGRAPHY REASON FOR VISIT: Female, 75 years old. Primary biliary cirrhosis. TECHNIQUE: Liver stiffness measurements were obtained on a Questli 85 ultrasound machine using a CA 1-7 probe following the SRU guidelines. 3 measurements were obtained using a 2-D-SWE method. The IQR/M was 14% suggesting a quality data set. TECHNICAL QUALITY: Adequate. COMPARISON: Comparison is made with prior examination dated 05/13/2016. FINDINGS: Liver: Fatty infiltration of the liver. Median liver stiffness measured 10 kPa. US/Elastography Parenchyma/Organ IMPRESSION: Liver stiffness measures 10 kPa compatible with F3 Metavir score. Electronically Signed: Geovani Orlando MD at 12:52 EDT , Service support ,
== END ==
PROVIDERS: PCP Internal Medicine; Referring Provider Internal Medicine Gastroenterology; Visit Provider Internal Medicine Gastroenterology
DX: K74.3 Primary biliary cirrhosis (principal)
CPT/HCPCS: 76705; 76981

== ENCOUNTER → 2021-02-23 14:35 | Outpatient (CLI) | payer MEDICARE, OTHER, SELFPAY ==
[2020-07-21 09:42] VITALS: BMI 29.9
--- NOTE | 2021-02-23 14:37 | CT_ITS ---
STUDY: CT SCAN LOWER EXTREMITY LEFT.[facility] protocol. REASON FOR EXAM: Female, 75 years old. VALGUS DEFORMITY,NOT ELSEWHERE Classified, l KNEE RADIATION DOSAGE (If Supplied By Facility): CTDIvol = ( 25.15 ) mGy, DLP = ( 1314.12 ) mGycm. Individualized dose optimization techniques were used for this CT.? TECHNIQUE: Multiple axial tomographic images of the left hip, knee and ankle joints were obtained. Coronal and sagittal reconstruction was obtained as well. COMPARISON: None. FINDINGS: There is a mild degree of the joint space narrowing along the superior lateral aspect of the left hip. No fracture or dislocation is seen. Imaging of the knee joint was obtained. Mild degree of joint space narrowing with degenerative spur formation along the medial compartment of the knee joint. Moderate to marked in degree of joint space narrowing involving the lateral compartment of knee joint with degenerative spur formation. This also evidence of a 7.1 mm subchondral cyst along the posterior lateral aspect of the tibial plateau. There is also evidence of a 1.7 cm x 1.4 cm calcified chondroid lesion or healed bone infarct involving the medial aspect of the distal femoral metaphysis. Imaging of the ankle joint was obtained. There is evidence of a plantar spur. CT/Extremity Lower without Contra IMPRESSION: Moderate to marked in degree of joint space narrowing involving the lateral compartment of the knee joint with subchondral cystic change in the posterior lateral aspect of the proximal tibia. 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 Electronically Signed: Geovani Orlando MD at 15:26 EDT , Service support ,
== END ==
PROVIDERS: PCP Internal Medicine; Referring Provider Specialist; Visit Provider Specialist
DX: M21.062 Valgus deformity, not elsewhere classified, left knee (principal)
CPT/HCPCS: 73700

== ENCOUNTER → 2021-03-03 | Outpatient (CLI) | payer MEDICARE, OTHER, SELFPAY | END | disposition home or self-care (01) | LOC: LABSPEC 16:40 | PROVIDERS: PCP Internal Medicine; Referring Provider Nurse Practitioner Women's Health; Visit Provider Nurse Practitioner Women's Health | DX: L90.0 Lichen sclerosus et atrophicus (principal); N95.2 Postmenopausal atrophic vaginitis | CPT/HCPCS: 87070; 87077; 87205 ==

== ENCOUNTER 2021-03-11 06:46 | Observation (INO) | payer MEDICARE, OTHER, SELFPAY ==
[2020-07-21 09:42] VITALS: BMI 29.9
--- NOTE | 2021-02-24 21:58 | HP.PCM_ITS ---
History and Physical History and Physical [facility] Patient Name: Dana Cisse : 1945 From: TESSA EVANS PA-C DATE OF SURGERY: 03/11/2021 SCHEDULED PROCEDURE: left total knee arthroplasty HISTORY OF PRESENT ILLNESS: Preoperative history and physical exam was performed on February 23, 2021. This is a 75-year-old female who is had ongoing pain in her left knee for several years. Pain is been intermittent, aching, sharp, stabbing, sore. Pain is increased with going up and down stairs and sitting. It has been progressively been getting worse over the past several months. Pain does awaken her at night. She has start up pain. Patient states she has not able to exercise due to the knee pain. Activities of daily living increase her knee pain. She has tried previous corticosteroid injection, nonsteroidal anti- inflammatories as well as previous therapy with no relief in symptoms. Denies previous surgery on the left knee. Patient has had previous right total knee arthroplasty in April 2020. After failing conservative measures and discussing treatment options with Dr. Ronald Andersen, the patient does wish to proceed with a left total knee arthroplasty. We have obtain surgical clearance from the primary care physician Dr. Elder. Patient has medical history pertinent for hyperlipidemia, primary biliary cirrhosis, history of atrial flutter with previous ablation. We are also obtaining surgical clearance from the navy material inspector Farrah Dailey. Patient denies any chest pain, shortness of breath, fevers chills, recent infections. Patient currently uses estradiol cream 2 times weekly. We discussed potential for increased risk of DVT. Gave patient the option to proceed with the cream and utilize Rivaroxaban 2 weeks postoperatively. Also discussed stopping the estradiol cream one week prior to surgery and remaining off of the cream until 4 weeks postoperatively. Patient would then be on aspirin 81 mg for 4 weeks postoperatively. Patient wished to proceed with aspirin 81 mg twice daily for 4 weeks postoperatively. REVIEW OF SYSTEMS: ROS: Const: Denies anorexia, change in appetite, fever, hard of hearing, vision problems and weight change. CV: Denies chest pain, heart murmur, irregular heartbeat and peripheral vascular disease. Resp: Denies asthma, cough, pneumonia, sleep apnea, SOB, tuberculosis and wheezing. GI: Reports constipation, diarrhea and heartburn, but denies difficulty swallowing, nausea, bloody stools and vomiting. : Urinary: denies incontinence. Musculo: Denies leg swelling, limp, trouble walking and weakness. Skin: Denies Raynaud's, history of shingles and tattoo. Neuro: Denies ambulatory dysfunction, dizziness, numbness/tingling and tremor. Psych: Denies anxiety, depression, insomnia, mental illness and stress. Raymond/Lymph: Denies anemia, bleeding/bruising tendency and past transfusion. Reviewed, no changes. PAST MEDICAL HISTORY: Advance Care Plan: No Advance Directives Effective Date: 04/09/2016 PMH: Medical Problems: Arthritis, Hypercholesterolemia, Primary Biliary Cirrhois A-Flutter - (2018) Accidents: Fracture - RT ANKLE ~ 1978- FELL Surgical Hx: Hysterectomy - (1982) [facility] Gallbladder - (1992) [facility] RT Knee Arthroscopy - (09/04/2010) [facility] @ [facility] Heart Ablation - (09/2016) Knee Replacement RT - (04/30/2020) [facility] AT [facility] Anesthesia Complications: None Assistive Devices: Glasses, Brace - RT Ankle Reviewed and updated. SOCIAL HISTORY: SH: Marital: .Occupation: Retired.Work Status: Retired.Hand Dominance: Right- handed. Personal Habits: Cigarette Use: Never Smoked Cigarettes.Alcohol: Denies use.Drug Use: Denies Use.Enjoy Exercising: Exercises 1-3 x/month. Reviewed, no changes. VITALS: Ht: 66.3 Wt: 194lb Wt k.998 BMI: 31.0 BP: 114/58 Pulse: 68 Resp: 26 T: 96.7 T: 35.9C Pain Level: 5 ALLERGIES: Feldene - Sick Neomycin - Rash Erythromycin - Rash Ceftin - Rash Fluress - Red Eyes MEDICATIONS: Clindamycin HCL 150 mg 4 by mouth 1 hour prior to dental appt, Multivitamins po DAILY, Ursodiol 500 mg 1po tid, Pravastatin Sodium 40 mg 1 by mouth every day, Ocuvite 1po qday, Estradiol 0.1 mg/gm insert vaginally 2 XWEEKLY, Miralax 1 po qd, Tylenol Extra Strength 500 mg po 1-2 PRN, Aspirin 81 81 mg 1po qday, Boniva 150 mg po monthly, Vitamin D-3 25 mcg (1000 Ut) 2 by mouth every day, Calcium + D 500-1000-40 MG-Unt-mcg 600 MG- 1PO QDay, Gabapentin 100 mg 1 by mouth three times a day PRE-OP EXAM: General appearance:NORMAL Other: Eyes: Conjunctivae and lids: NORMAL Pupils: ERR Ears, Nose, Mouth, and Throat: NORMAL Other: Inspection of lips, teeth and gums: NORMAL Other: Neck: Examination of neck: no masses noted. Respiratory: Assessment of respiratory effort: NORMAL Other: Auscultation of lungs: clear to auscultation no wheezes, rhonchi or rales. Cardiovascular: Auscultation of heart: regular rate and rhythm, no murmurs, gallops or rubs. Exam of carotid arteries: NORMAL Other: Gastrointestinal: Exam of abdomen: soft, nontender, nondistended bowel sounds present. PHYSICAL EXAMINATION: Patient does walk with an antalgic gait. Left knee is cool to touch without erythema or signs of infection. There is tenderness to palpation over lateral joint line. There is valgus alignment which is correctable on exam. Patient has positive effusion. Range of motion: Lacks 5 full extension to 118 flexion. Stable to varus/valgus stress test. Sensation intact to light touch. IMAGING STUDIES: Previous x-rays of the left knee reveal valgus alignment with lateral joint space narrowing, subchondral sclerosis, osteophyte formation consistent with severe tricompartmental osteoarthritis. IMPRESSION: 1. Severe tricompartmental left knee osteoarthritis 2. Presence of right total knee arthroplasty 3. Hyperlipidemia 4. Sleep apnea 5. Primary biliary cirrhosis 6. History of atrial flutter with previous ablation PLAN: Dr. Ronald Adnersen did discuss and review with the patient all treatment options including surgical versus nonsurgical options. Patient does wish to proceed with the above-stated procedure. Potential risks, benefits, and complications of the procedure were discussed in detail including but not limited to , infection, nerve and blood vessel damage, persistent pain, numbness, tingling, paresthesias, blood clot, pulmonary embolism, and requirement for possible fur ther surgery. The patient expressed full understanding and has no further questions for the doctor. Patient does agree to proceed with the above-stated procedure and has signed the surgery consent form. We discussed the current risks associated with COVID 19. This does include the risk of exposure while in the hospital. Patient was reassured local hospitals have low infection rates and are taking all necessary precautions to avoid exposure to patients. In addition, we discussed strategies that can be used to help limit exposure including those that limit the patient's time in the hospita l. Also using strategies to limit the patient's need for continued inpatient services after being discharged from the hospital. Patient was notified that we will need to comply with any screening or testing the hospital wishes to perform or that surgery may be delayed for any positive results. This dictation was created using voice recognition software. Phonetic and/or grammatical errors may exist. ___ I have re-examined the patient. There are no clinical changes since date of exam. ___ See progress notes for changes. ___ Dictated on admission Date: Time: Signature:
--- NOTE | 2021-02-25 09:27 | EKG12_ITS ---
Test Reason : PREOP Blood Pressure : / mmHG Vent. Rate : 051 BPM Atrial Rate : 051 BPM P-R Int : 114 ms QRS Dur : 084 ms QT Int : 448 ms P-R-T Axes : -18 003 041 degrees QTc Int : 412 ms Sinus bradycardia Otherwise normal ECG Confirmed by ANH ARTIS, NAKUL ([id number]), art editor JADIEL HDEZ ([id number]) on 02/26/2021 10:09:16 AM Referred By: Ronald Andersen Confirmed By:NAKUL KAMARA MD
[2021-02-25 10:32] LABS: Absolute Lymphocyte Count 1.62 X10^3/uL (0.83-4.51); Absolute Neutrophil Count 3.9 X10^3/uL (2.0-7.7); Basophil# 0.03 X10^3/uL; Basophil% 0.5 % (0-1); Eosinophil# 0.09 X10^3/uL; Eosinophils% 1.5 % (0-5); Hemoglobin 13.4 g/dL (12.0-15.0); Lymphocyte # 1.62 X10^3/ul (0.83-4.51); Lymphocyte % 26.5 % (19-41); Mean Corp Hgb Conc 31.2 g/dL (32-36); Mean Corpuscular Hgb 30.7 pg (27.0-32.0); Mean Corpuscular Volume 98.4 fL (81-99); Mean Platelet Vol. 9.7 fl (6.2-12.0); Monocyte# 0.48 X10^3/uL; Monocyte% 7.8 % (0-10); NRBC Flagged by Analyzer 0 % (0-5); Neutrophil # 3.89 X10^3/uL (2.7-7.7); Neutrophil % 63.5 % (47-70); Platelet Count 309 K/mm3 (150-450); RBC Distribution Width CV 12.4 % (11.6-14.6); RBC Distribution Width SD 44.7 fl (35.1-43.9); Red Blood Count 4.37 M/mm3 (4.2-5.4); White Blood Count 6.1 K/mm3 (4.4-11.0)
[2021-02-25 10:57] LABS: Anion Gap 2 (5-15); BUN 22 mg/dL (7-18); BUN/Creat Ratio 22.9 RATIO (10-20); Calcium,Total 9.7 mg/dL (8.5-10.1); Chloride 105 mmol/L (98-107); Creatinine, Serum 0.96 mg/dL (0.55-1.02); EST Glomerular Filtration Rate 60 mL/min (>60); Est Glom Filt Rate - Afr Amer 73 mL/min (>60); Glucose 90 mg/dL (74-106); Potassium 4.6 mmol/L (3.5-5.1); Sodium Level 138 mmol/L (136-145)
[2021-02-25 11:03] LABS: Magnesium 2.6 mg/dL (1.6-2.6)
[2021-03-11] VITALS (14 sets, daily range): BP systolic 106–161; BP diastolic 42–80; PULSE 54–73; RESP 16–18; TEMP 35.9–36.7; O2SAT 98–100; BMI 30.7
[2021-03-11] MEDS: Lactated Ringers 1,000 ML 999 ML IV ×2 (06:30→10:00)
--- NOTE | 2021-03-11 06:40 | PCM.OPRPT ---
Report of Operation Date of Procedure: 03/11/21 Pre-Operative Diagnosis: Left knee primary osteoarthritis Post-Operative Diagnosis: Left knee primary osteoarthritis Surgery/Procedure Performed:: Left knee minimally invasive robotic assisted total knee replacement Description of Surgical Findings:: Stable knee with good patella tracking Surgeon: Ronald Andersen oracle manufacturing consultant: Mikael Chowdary Type of Anesthesia: Spinal Anesthesiologist: Jarrett Larson Special Medications: 2 g Ancef, 1 g TXA at incision, 1 g TXA closure, 10 mg Decadron, joint cocktail (5 mg Duramorph, 30 mL of 0.5% Ropivicaine, 1000 units of epinephrine, 30 mg of Toradol) Specimen's removed: Bony cuts Estimated Blood Loss (mL): 25 Fluids Replaced: 1300 mL crystalloid Description of Procedure: Implants used: 1. Dunia size 4 triathlon cruciate retaining distal femoral press-fit component 2. [place] size 4 press-fit tritanium tibial baseplate 3. Dunia X3 9 mm CS polyethylene 4. Dunia X3 29 mm asymmetric patella Brief history operative indications: 75-year-old f with history of left knee osteoarthritis with radiographic findings with loss of joint space, osteophyte formation and subchondral sclerosis. Failed conservative measures as mentioned in the H&P. Discussion of total knee arthroplasty as well as risk and benefits were discussed the patient including but not limited to blood loss, DVTs, PEs, neurovascular damage, general risk of anesthesia including loss of life, and stiffness or instability were discussed with patient. Patient demonstrated understanding and was able to sign informed consent. Procedure: On the date of procedure patient's left lower extremity was marked in the preoperative area. The patient was then taken back to the operating room where the patient was placed on the table in the supine position. All bony prominences were identified a well-padded. Anesthesia assumed control of the C-spine and airway and remained controlled throughout the remainder of the procedure. A tourniquet was placed on the left upper thigh and the leg was prepped in a sterile fashion. The surgeon then scrubbed at this time .Upon reentering the room left lower extremity was draped in a standard orthopedic fashion. A timeout was then called and everyone agreed upon the side, the site, the procedure to be performed, patient's identity and antibiotics given. Esmarch bandage was used to exsanguinate the extremity and the tourniquet was placed up to 250 mmHg with the knee in flexion. A midline skin incision was made and sharp dissection was taken down through skin subcutaneous tissue and fat. The standard medial parapatellar incision was made and the patella was subluxed laterally. An Appropriate deep MCL release was done and the fat pad was resected. Our attention was then directed to the patella. The patella was everted and a flat resection was made. The knee was then flexed up in 2 femoral pins were placed inside the incision and 2 tibial pins were placed outside the incision in the medial tibia bicortically. Once this was completed the 2 checkpoints in the femur and tibia were placed. Knee was then flexed up and the bony landmarks were registered. Once this was completed knee was taken through range of motion and manually stressed allowing us to a plan for an appropriate tibial cut. The robotic arm was brought into the field sterilely and checkpoint and saw were registered. Based on the patient's deformity the tibial cut was made neutral to the tibial axis. At this time the tensioner was then placed in the joint and ligament tension was checked at 90 degrees and full extension. Based on the patient's ligamentous tension appropriate adjustments were made to the operative plan and ligament releases were done. Once we were happy with our operative plan with balanced flexion and extension gaps our attention was directed to the femur. The robot was brought into the field sterilely and registered. Posterior condylar cuts, anterior chamfer cuts and anterior cuts were appropriately made for a size 4 femur. When these were completed the saws were switched out in the distal femoral and posterior chamfer cuts were made. Protecting the soft tissue throughout this time. A size 4 tibial base plate was selected. the knee was flexed to 90 degrees and the soft tissues and posterior osteophytes were removed from the joint. 40 cc of the periarticular injection was injected into the posterior medial corner of the joint. The appropriate trials were then placed on the femur and tibia. A trial polyethylene was trialed to ensure proper balancing and stability of the knee. The appropriate tibial internal rotation was then marked with a bovie. Our attention was then directed to the patella. The lug holes were drilled and the patella trial was placed. Patellar tracking was checked and deemed appropriate. Once we were happy lug holes were drilled for the femur and trial components were removed. the tibia was subluxed and pinned into place and the keel was punched and drilled appropriately. Final components were verified and opened, and cement was mixed in a vacuum. [employer] Simplex cement was used. The wound was copiously irrigated with normal saline. When the cement was ready the components were impacted into place starting with the tibia, femur and finally cementing the patella. The trial poly component was placed and the knee was placed in full extension. All excess cement was removed in the process. Once the cement had cured the tracking, alignment and balance were verified and a size 9 mm CS polyethylene component was placed. Once the final components were placed a 3-minute dilute Betadine lavage was performed followed by an Irrisept lavage was performed and the wound was copiously irrigated with normal saline solution and the periarticular injection was given. The wound was closed in a layer park fashion using #1 vicryl interrupted sutures for the arthrotomy, 2-0 interrupted Vicryl suture for the subcuticular layer and zee for final skin closure. A sterile compressive dressing was then placed. The patient was then awakened from anesthesia, transferred to the rsouth jordan and transferred to the PACU for recovery. Post op plan DVT ppx: Xarelto secondary to Topical hormone replacement therapy, thigh high compression stockings Follow up: in office in 2 weeks for wound check PT: to start POD #0 at hospital, outpatient PT should be arranged. My physician assistant sales center manager was a vital part of this case. He was important in appropriate retraction during the case, and protection of soft tissues during bony cuts. His intimate knowledge of the case and my steps aided in safe and expedient completion of the procedure as well as appropriate position of the leg during the case. He was also vital in assisting with closure under my direct supervision. Due to the complexity of this case robotic arm was used to assist in the surgery to improve accuracy and clinical outcomes. Complications No intraoperative complications Admit VTE Documentation VTE Present on Admission: No VTE Mechan Device Prophylaxis: SCD's and Thigh High KENNEDI Hose VTE Pharm Prophylaxis ordered?: Yes
[2021-03-11] MEDS: Acetaminophen 500 MG Tablet 1000 MG PO ×3 (07:05→22:53)
[2021-03-11] MEDS: Gabapentin 600 MG Tablet PO (07:08)
[2021-03-11] MEDS: Cefazolin 2 GM in 0.9% Normal Saline 100 ML IV (08:53)
--- NOTE | 2021-03-11 10:45 | RAD_ITS ---
STUDY: X-RAY - LEFT KNEE REASON FOR EXAM: Postoperative evaluation of left total knee arthroplasty. TECHNIQUE: 2 view(s) of the knee. COMPARISON: CT images 02/23/2021. FINDINGS: There is a left total knee arthroplasty without evidence of complication. 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 There is postoperative gas in the soft tissues and overlying skin zee. RAD/Knee 1 or 2 Views IMPRESSION: Uncomplicated left total knee arthroplasty. Electronically Signed: Nhan Wong MD at 14:12 EDT Tel , Service support ,
[2021-03-11] MEDS: Lactated Ringers 1,000 ML 125 ML IV (13:49)
--- NOTE | 2021-03-11 15:45 | PN.HOSP_ITS ---
Documented by User: Samra Lemons VICE PRESIDENT OF SOFTWARE ENGINEERING, VICE PRESIDENT OF SOFTWARE ENGINEERING-C 03/11/21 15:50 Subjective Subjective Patient seen and examined. Underwent left knee total replacement. Pain controlled at this time. Denies other symptoms or complaints. Objective Data Objective Data Vital Signs: Vital Signs Temp Pulse Resp BP Pulse Ox 96.6 F L 65 16 121/56 H 98 03/11/21 14:37 03/11/21 14:37 03/11/21 14:37 03/11/21 14:37 03/11/21 14:37 Oxygen Flow Rate (L/min) 6 Oxygen Delivery Method Room Air Weight: 190 lb 11.198 oz Body Mass Index (BMI) 30.7 Intake & Output: Intake and Output for Last 24 Hours 03/09/21 03/10/21 03/11/21 23:59 23:59 23:59 Intake Total 2602.17 / 2602.17 Balance 2602.17 / 2602.17 Lab / Micro Data Result Diagrams: 02/25/21 09:50 02/25/21 09:50 Micro: Microbiology 02/25/21 09:50 Swab (Method) Nasal Screen MRSA/MSSA - Final Physical Exam Const alert, oriented x3 and no apparent distress Orientation / Consciousness: awake, oriented to person, oriented to place and oriented to time HEENT normocephalic and moist oral mucous membranes Eyes PERRL, EOMs intact bilaterally and conjunctivae normal Neck no lymphadenopathy Resp normal respiratory effort and clear to auscultation bilaterally Cardio regular rate, regular rhythm and no murmurs Peripheral Pulses: pulses 2+ throughout GI normal to inspection, nondistended, normoactive bowel sounds, non-tender and non-distended Extremity normal to inspection Skin no rashes or lesions noted Skin Narrative: Postop dressing intact. Lesions: no lesions Rashes: no rashes Trauma: no lacerations or abrasions Neuro CN's II-XII intact bilaterally, no focal motor deficits, no sensory deficits noted and deep tendon reflexes 2+ bilaterally Psych mental status grossly normal and affect normal Assessment & Plan Assessment/Plan (1) Arthritis: PLAN: 1. Left knee status post total knee replacement-management per orthopedic medicine. PT/OT. As needed pain regimen. 2. History of atrial fibrillation status post ablation 2016 3. Hyperlipidemia-continue statin. 4. Primary biliary cirrhosis-on ursodiol. DVT prophylaxis-Xarelto This patient was seen by SARBJIT LamasC under the supervision of Dr. Walker. Documented by User: Dr. Karo Walker MD 03/11/21 16:45 Objective Data Lab / Micro Data Result Diagrams: 02/25/21 09:50 02/25/21 09:50 Charges/Coding Addendum Addendum: This patient was seen in conjunction with Samra Lemons NP. I have independently interviewed and examined the patient and reviewed pertinent historical, laboratory, and other data. I have reviewed her note and concur with her documentation Consult for postop medical management: 75-year-old female past medical history of osteoporosis, on treatment who comes in for elective left knee replacement. Patient was seen in the immediate postop period. Her pain is controlled. Denied any dizziness or palpitation. Her vitals was reviewed. Not on oxygen. Physical Exam: Gen: Appeared comfortable, not pale, not jaundiced CVS:HS I +II, regular, no murmurs RESP: Diminished at lung bases GI: BS present and normal, soft, nontender, no palpable organs EXT:No edema, left knee with cooling mat ASSESSMENT: 1. Postop day #0 status post left knee minimally invasive robotic assisted total knee replacement 2. Hyperlipidemia 3. HONG 4. Primary biliary cirrhosis 5. History of a flutter status post ablation Plan: Continue with current pain regimen Continue with ursodiol Continue with orthopedics recommendations for wound, PT and OT Visit Charges Office Visits / Consults: [id number] OV L4 New
[2021-03-11] MEDS: Cefazolin 1 GM/50 ML BAG IV (16:30)
[2021-03-11] MEDS: oxyCODONE 5 MG Tablet PO (16:30)
[2021-03-11] MEDS: Ursodiol 250 MG Tablet 500 MG PO (16:31)
[2021-03-11] MEDS: Senna/Docusate Sodium 1 Tablet 2 TABLET PO (22:52)
[2021-03-11] MEDS: Pravastatin 40 MG Tablet PO (23:18)
[2021-03-11] MEDS: Polyethylene Glycol 3350 17 GM PACKET PO (23:19)
[2021-03-12] MEDS: Cefazolin 1 GM/50 ML BAG IV (01:07)
[2021-03-12] MEDS: Ketorolac 15 MG/ML Vial IV (03:34)
[2021-03-12] MEDS: 0.9% Saline Lock 10 ML Syringe IV (03:34)
[2021-03-12 03:51] VITALS: BP 140/64; PULSE 56; RESP 18; TEMP 36.6; O2SAT 99
[2021-03-12] MEDS: Rivaroxaban 10 MG Tablet PO (05:58)
[2021-03-12] MEDS: Acetaminophen 500 MG Tablet 1000 MG PO ×2 (05:59→12:57)
[2021-03-12 06:20] LABS: Hematocrit 38.4 % (37-47); Hemoglobin 12.5 g/dL (12.0-15.0); Mean Corp Hgb Conc 32.6 g/dL (32-36); Mean Corpuscular Volume 95.3 fL (81-99); Mean Platelet Vol. 9.9 fl (6.2-12.0); Platelet Count 215 K/mm3 (150-450); RBC Distribution Width CV 12.2 % (11.6-14.6); RBC Distribution Width SD 43.4 fl (35.1-43.9); Red Blood Count 4.03 M/mm3 (4.2-5.4); White Blood Count 15.1 K/mm3 (4.4-11.0)
[2021-03-12 06:47] LABS: Anion Gap 4 (5-15); BUN 20 mg/dL (7-18); BUN/Creat Ratio 23.6 RATIO (10-20); Calcium,Total 8.4 mg/dL (8.5-10.1); Chloride 110 mmol/L (98-107); Creatinine, Serum 0.85 mg/dL (0.55-1.02); EST Glomerular Filtration Rate 69 mL/min (>60); Est Glom Filt Rate - Afr Amer 84 mL/min (>60); Estimated Creatinine Clearance 53.53 ml/min; Glucose 105 mg/dL (74-106); Potassium 4.5 mmol/L (3.5-5.1); Sodium Level 140 mmol/L (136-145)
[2021-03-12 08:12] VITALS: BP 159/64; PULSE 50; RESP 18; TEMP 35.9; O2SAT 100
[2021-03-12] MEDS: Calcium Carb/Vitamin D 1 TABLET Tablet PO (08:15)
[2021-03-12] MEDS: Ursodiol 250 MG Tablet 500 MG PO ×2 (08:16→12:52)
[2021-03-12] MEDS: Famotidine 20 MG Tablet PO (08:16)
[2021-03-12] MEDS: Senna/Docusate Sodium 1 Tablet 2 TABLET PO (08:16)
[2021-03-12] MEDS: Ensure Surgery 237 ML LIQUID PO ×2 (08:23→12:53)
[2021-03-12 10:29] VITALS: BP 150/64; PULSE 55; RESP 18; TEMP 36.4; O2SAT 100
--- NOTE | 2021-03-12 10:30 | CASEMGMT ---
RN CM [employer] FURNACE OPERATOR HELPER CM to room to meet with patient for initial transition planning/care coordination assessment. RN ANSHU introduced self and role at [facility]. Pt voices understanding and consents to assessment at this time. Pt sitting up in chair in room in no distress at this time. Pt is A/O at this time and answers all questions appropriately. Care providers, pharmacy, and demographics verified/updated at this time. PCP: Dr Elder Specialists: Dr Andersen--ortho, Camp Program Director @ [place] [facility] Preferred Pharmacy: [facility] (formerly [facility]) Insurance: MCR, AARP Prescription Benefit: yes Living Will/HPOA: Pt does not currently have LW/HCPOA and declines info at this time. Pt made aware that she can contact SW as an out-pt and make appt in the future if she decides he would like to talk with someone about this or would like to utilize [facility] social work for advanced directive completion. Given [employer] card with information and contact number. Pt expresses understanding. LNOK: , Umang Living Arrangements: Lives w/, Umang, in one-story home w/basement. 3-4 steps to enter. Independent prior to surgery. Bailey Rodriguez, will assist w/meals and as needed. Transportation: Pt states drives self and states no transportation concerns at this time. Bailey Rodriguez will take pt home @ d/c. DME: States has the following DME: RTS, cane, rails, walker Pt states no need for further DME at this time. HHC/SNF: No history of either. Pt plans to go to OP therapy @ [facility]. Has 1st appt scheduled for 03/16 @ 1030. Pt wishes to return home and states has no concerns with going home at time of discharge. CM to follow for any discharge planning/needs. Pt voices no concerns/needs at this time. Advised pt to ask for CM if any questions/concerns/needs arise. Voices understanding. PLAN: Home w/OP therapy and discharge plans in place. Lit BARRETO RN, CM
--- NOTE | 2021-03-12 10:53 | PCM.PN.ORT ---
Subjective Subjective The patient was sitting in bedside chair upon examination. Patient denies any chest pain, shortness of breath, dizziness, lightheadedness, nausea or vomiting, or calf pain. Pain is controlled on medications. No adverse overnight events. Overall patient is doing very well. Patient has primarily been utilizing Tylenol. She reports she has the oxycodone at home. Objective Data Objective Data Vital Signs: Vital Signs Temp Pulse Resp BP Pulse Ox 97.6 F L 55 L 18 150/64 H 100 03/12/21 10:03/12/21 10:03/12/21 10:03/12/21 10:03/12/21 10:29 Oxygen Flow Rate (L/min) 6 Oxygen Delivery Method Room Air Weight: 86.5 kg Body Mass Index (BMI) 30.7 Intake & Output: Intake and Output for Last 24 Hours 03/10/21 03/11/21 03/12/21 23:59 23:59 23:59 Intake Total 3252.17 / 3252.17 50 / 50 Output Total 150 / 550 400 / 400 Balance 3102.17 / 2702.17 -350 / -350 Lab / Micro Data Result Diagrams: 03/12/21 06:10 03/12/21 06:10 Labs: Laboratory Results - last 24 hr 03/12/21 06:10: WBC 15.1 H, RBC 4.03 L, Hgb 12.5, Hct 38.4, MCV 95.3, MCH 31.0, MCHC 32.6, RDW Std Deviation 43.4, RDW Coeff of Ori 12.2, Plt Count 215, MPV 9.9 03/12/21 06:10: Sodium 140, Potassium 4.5, Chloride 110 H, Carbon Dioxide 26.0, Anion Gap 4 L, BUN 20 H, Creatinine 0.85, Estim Creat Clear Calc 53.53, Est GFR (MDRD) Af Amer 84, Est GFR (MDRD) Non-Af 69, BUN/Creatinine Ratio 23.6 H, Glucose 105, Calcium 8.4 L Micro: Microbiology 02/25/21 09:50 Swab (Method) Nasal Screen MRSA/MSSA - Final Radiography Diagnostic Testing: Radiology Impression Knee X-Ray 03/11/21 10:45 IMPRESSION: Uncomplicated left total knee arthroplasty. Electronically Signed: Nhan Wong MD at 14:12 EDT Tel , Service support , Physical Exam Narrative Vital signs stable and afebrile. Patient is able to plantarflex and dorsiflex actively. Sensation is intact to light touch to saphenous, sural, superficial and deep peroneal, and tibial distribution. Patient has minimal drainage over the distal pin site. There is quarter size drainage from the distal one third of the main dressing with remaining dressing clean dry and intact. Negative Homans bilaterally, negative signs and symptoms of DVT. Const alert, oriented x3 and no apparent distress Assessment & Plan Assessment/Plan (1) Status post total left knee replacement: PLAN: 1. S/P left total knee arthroplasty POD #1 2. Continue Pain Medications: Tylenol and oxycodone. Patient has oxycodone at home. She will not require a new prescription. 3. DVT Prophylaxis: Patient will be utilizing Xarelto for 2 weeks postoperatively as she is currently using hormone therapy cream. Plan will be to begin aspirin 81 mg twice daily at her 2-week follow-up. 4. PT/OT: Weightbearing as tolerated 5. H & H: 12.5/38.4, asymptomatic. Postoperative anemia secondary to acute blood loss from surgery without any intra operative complications. 6. Reactive leukocytosis: Currently 15.1, afebrile. Patient did receive Decadron intraoperatively 7. Encouraged Incentive Spirometry 8. Continue postoperative medical management per medicine 9. Disposition: Plan will be for discharge home today as patient is doing very well and pain is well controlled. Prescriptions will be E scribed to [facility]. She has the following medications at home that she will continue: Tylenol, oxycodone, and stool softener. Patient will begin physical therapy which is scheduled for March 16, 2021. Patient will follow-up per postop instructions. I have reviewed the [place] Automated Rx Reporting System (OARRS) report for this patient for refill pattern and other prescriber involvement as part of the appropriate surveillance for the provision of acute and chronic controlled medications. The report was requested and reviewed on the date of this entry and was considered in the prescribing process.
--- NOTE | 2021-03-12 10:56 | PCM.DC ---
Discharge Instructions Diet Discharge Diet: No restrictions Activity Discharge Activity: May Not Drive (while taking narcotic pain medications.) May shower in (days): 1 (Please turn dressing away from water. Okay to get wet as long as dressing is intact to skin.) Ice area for (Minutes): 20 (Every 1-2 hours while awake. Please place barrier between the skin and ice pack.) Weight Bearing Status: Weight bearing as tolerated Keep extremity elevated above heart level: Operative Extremity Dressing / Incision Call your doctor if your incision/area has: Continuous Slow Oozing, Sudden Increased Bleeding, Increased Pain/ Swelling, Increased Redness and Foul Smelling Discharge Call your doctor if you observe: Fever of 101 or Higher, Coldness, Increased Pain, Numbness or Tingling, Change in Color, Shortness of breath, Chest pain, Calf discomfort and Uncontrolled pain Remove Dressing in: 4 days (Okay to remove dressings on March 16, 2021.) Additional Dressing/Incision Instructions:: Follow [facility] Post-op Instructions. Once postoperative dressing has been removed only use gentle soap and water over the incision. Do not use any ointments, Neosporin, salves, alcohol pads over the incision for 6 weeks postoperatively. Do not submerge underwater for 6 weeks postoperatively. Continue with KENNEDI hose/elastic stockings for 2 weeks postoperatively. May remove at nighttime but needs to be placed back on the leg during the day. Do NOT use alcohol with narcotic pain medication. Do NOT make important decisions while taking narcotic medication. If you have problems with taking your medication (rash, itching, nausea, etc.) call the office at once. Follow Up Care Test Results: Test results from this visit will be discussed in further detail at your follow-up appointment, if applicable. Discharge Plan Admission Admit Date/Time: 03/11/21 06:46 Attending Provider: Hua Cunningham Primary Care Provider: Sarah Elder Consulting Providers: Karo Walker Discharge Orders/Prescriptions Prescriptions: New oxycodone 5 mg Tablet 5 - 10 mg PO Q4H PRN PRN (Reason: Pain Score 4-10) 7 Days Qty: 0 RF: 0 Xarelto 10 mg Tablet 10 mg PO DAILY@0600 Qty: 13 RF: 0 sennosides-docusate sodium [Stool Softener-Stimulant Laxat] 8.6-50 mg Tablet 2 tab PO BID Qty: 0 RF: 0 Continued C,E,zinc,copper [id number] [Ocuvite Adult 50 Plus] 250-5-1 mg capsule 1 cap PO DAILY RF: 0 ursodiol 500 mg tablet 500 mg PO TIDCM RF: 0 pravastatin 40 mg tablet 40 mg PO QHS RF: 0 aspirin 81 mg tablet,chewable 81 mg PO DAILY RF: 0 gabapentin 100 mg capsule 100 mg PO QHS RF: 0 nystatin 100,000 unit/gram cream 1 applic topical BID 7 Days Qty: 15 RF: 2 polyethylene glycol 3350 17 GM powder in packet 17 g PO QHS RF: 0 jekuxgpp-bzm-GF-lycopen-lutein 1 EACH tablet 1 ea PO DAILY RF: 0 clobetasol 15 GM cream 1 applic TOPICAL .COMPLEX RF: 0 acetaminophen 500 MG tablet 1,000 mg PO Q8 Qty: 100 RF: 0 clindamycin HCl 150 mg capsule 150 mg PO UD RF: 0 calcium carbonate-vitamin D3 600 mg(1,500mg) -200 unit Tablet 1 tab PO DAILY RF: 0 gabapentin 100 mg capsule 100 mg PO QHS RF: 0 ibandronate [Boniva] 150 mg tablet 150 mg PO QMONTH RF: 0 estradiol 0.01 % (0.1 mg/gram) cream See Rx Instructions VAGINAL .COMPLEX Qty: 42.5 RF: 1 fluconazole 150 mg tablet 150 mg PO ONCE Qty: 1 RF: 0 Referrals / Follow Up: Physical,Therapy [Other] - 03/16/21 10:30 am Sarah Elder MD [Primary Care Provider] - Mikael Chowdary PA-C [PHYSICIAN ACTION FINISHER] - 03/26/21 1:30 pm Disposition Disposition (needs filled in before D/C Order can be placed): Home, Self Care
[2021-03-12] MEDS: oxyCODONE 5 MG Tablet PO (12:57)
[2021-03-12 14:00] VITALS: BP 129/55; PULSE 60; RESP 18; TEMP 36.7; O2SAT 98
== END 2021-03-12 14:03 | disposition home or self-care (01) ==
LOC: SDC 14:16 → MS2 14:16
PROVIDERS: Anesthesiology; Admitting Provider Specialist; PCP Internal Medicine; Referring Provider Specialist; Visit Provider Family Medicine
PROC: 0SRD0JZ Replacement of Left Knee Joint with Synthetic Substitute, Open Approach (ICD-10-PCS; CPT 27447; principal; 2021-03-11 08:15)
DX: M17.12 Unilateral primary osteoarthritis, left knee (principal); E78.5 Hyperlipidemia, unspecified; I48.92 Unspecified atrial flutter; I48.91 Unspecified atrial fibrillation; K74.3 Primary biliary cirrhosis; K21.9 Gastro-esophageal reflux disease without esophagitis; I51.9 Heart disease, unspecified; B37.3 Candidiasis of vulva and vagina; L90.0 Lichen sclerosus et atrophicus; R00.1 Bradycardia, unspecified; N95.2 Postmenopausal atrophic vaginitis; G47.33 Obstructive sleep apnea (adult) (pediatric); M81.0 Age-related osteoporosis without current pathological fracture; Z79.890 Hormone replacement therapy; Z79.899 Other long term (current) drug therapy; Z79.82 Long term (current) use of aspirin
CPT/HCPCS: 01402; 27447; 64447; S2900; 36415; 73560; 80048; 83735; 85025; 85027; 87070; 87077; 87081; 87205; 93005; 96365; 96366; 96375; 97110; 97116; 97162; 97166; 97530; 97535; 99218; 99251; C1776; J7120; A4216; G0378; G0463

== ENCOUNTER 2021-07-27 09:34 | Outpatient (CLI) | payer MEDICARE, OTHER, SELFPAY ==
--- NOTE | 2021-07-27 09:40 | BI_ITS ---
MAMMOGRAPHY - BILATERAL SCREENING REASON FOR EXAM: Female, 75 years old. Routine annual screening examination. PERTINENT HISTORY: Mother with breast cancer. Aunts with breast cancer TECHNIQUE: Digital bilateral breast sonia (3D mammographic acquisition) in the CC and MLO projections. 2-D mediolateral oblique (MLO) and craniocaudad (CC) views of both breasts were obtained. CAD: Full Field Digital Mammography with Computer Added Detection was performed. COMPARISON: Comparison is made with prior study of 07/21/2020 07/18/2019. FINDINGS: Breast Composition: There are scattered areas of fibroglandular density. There are no dominant masses or suspicious calcifications. No other significant abnormalities are identified. There has been no significant change since the prior study. BI/SCRN MAMM (CAD)W/SONIA BILAT IMPRESSION: Stable bilateral screening mammogram. Yearly follow-up mammogram recommended. (A) ASSESSMENT CATEGORY: BIRADS Category 1: Negative. A letter regarding these results will be sent to the patient by the facility within 30 days. Approximately 10% of breast cancers are not detected by mammography. A normal mammogram should not delay biopsy of a clinically suspicious abnormality. [id number] Electronically Signed: Geovani Orlando MD at 10:26 EST ,
== END 2021-07-27 23:59 | disposition home or self-care (01) ==
LOC: OPBI 09:39
PROVIDERS: PCP Internal Medicine; Referring Provider Obstetrics & Gynecology; Visit Provider Obstetrics & Gynecology
DX: Z12.31 Encounter for screening mammogram for malignant neoplasm of breast (principal); Z80.3 Family history of malignant neoplasm of breast
CPT/HCPCS: 77063; 77067

== ENCOUNTER → 2021-12-31 | Outpatient (CLI) | payer MEDICARE, OTHER, SELFPAY ==
--- NOTE | 2021-12-31 08:45 | MRI_ITS ---
EXAM: MR ABDOMEN WITHOUT AND WITH INTRAVENOUS CONTRAST CLINICAL INDICATION: BILIARY CIRRHOSIS TECHNIQUE: Multiplanar and multisequence MR images of the abdomen without and with intravenous contrast. This report was created using [employer] report generation technology. CONTRAST: IV DOTAREM 17 CC COMPARISON: None. FINDINGS: LOWER THORAX: Unremarkable. No pleural effusion. LIVER: Unremarkable. Normal morphology. No focal mass. GALLBLADDER AND BILE DUCTS: Cholecystectomy. No intra- or extrahepatic biliary ductal dilation. PANCREAS: Unremarkable. No focal cystic or solid mass. SPLEEN: Unremarkable. Normal size without focal cystic or solid mass. ADRENALS: Unremarkable. No nodules. KIDNEYS AND URETERS: Multiple small renal cysts bilaterally. Normal renal size and position. No hydronephrosis. INTRAPERITONEAL SPACE: Unremarkable. No ascites or other fluid collection. No free air. VASCULATURE: Unremarkable. Abdominal aorta is non-dilated. LYMPH NODES: No enlarged lymph nodes. MRI/MRI Abd WITH and W/O Contrast IMPRESSION: 1. Cholecystectomy. 2. Multiple small renal cysts bilaterally. No follow-up imaging required. Electronically Signed: Bob Godinez MD at 0:25 EDT ,
[2021-12-31 09:11] LABS: CREATININE FINGERSTICK < 0.9 mg/dL (0.55-1.02); EGFR FINGERSTICK > 60.0000 mL/min (>60)
== END | disposition home or self-care (01) ==
PROVIDERS: PCP Internal Medicine; Referring Provider Internal Medicine Gastroenterology; Visit Provider Internal Medicine Gastroenterology
DX: K74.3 Primary biliary cirrhosis (principal); N28.1 Cyst of kidney, acquired
CPT/HCPCS: 74183; A9575; A4216

== ENCOUNTER → 2022-08-17 | Outpatient (CLI) | payer MEDICARE, OTHER, SELFPAY ==
--- NOTE | 2022-08-17 09:51 | BI_ITS ---
MAMMOGRAPHY - BILATERAL SCREENING REASON FOR EXAM: Female, 76 years old. Routine annual screening examination. PERTINENT HISTORY: Mother with breast cancer. Aunt with breast cancer. TECHNIQUE: Digital bilateral breast sonia (3D mammographic acquisition) in the CC and MLO projections. 2-D mediolateral oblique (MLO) and craniocaudad (CC) views of both breasts were obtained. CAD: Full Field Digital Mammography with Computer Added Detection was performed. COMPARISON: Comparison is made with prior study dated July 27, 2021 and July 21, 2020. FINDINGS: Breast Composition: There are scattered areas of fibroglandular density. There are no dominant masses or suspicious calcifications. No other significant abnormalities are identified. There has been no significant change since the prior study. BI/SCRN MAMM (CAD)W/SONIA BILAT IMPRESSION: Stable bilateral screening mammogram. Yearly follow-up mammogram recommended. (A) ASSESSMENT CATEGORY: BIRADS Category 1: Negative. A letter regarding these results will be sent to the patient by the facility within 30 days. Approximately 10% of breast cancers are not detected by mammography. A normal mammogram should not delay biopsy of a clinically suspicious abnormality. [id number] Electronically Signed: Geovani Orlando MD at 11:01 EST ,
--- NOTE | 2022-08-17 09:58 | BD_ITS ---
STUDY: DUAL ENERGY X-RAY ABSORPTIOMETRY / DXA REASON FOR EXAM: Female, 76 years old. Screening TECHNIQUE: Bone Mineral Density (BMD) measurements of lumbar spine and bilateral hips were obtained. COMPARISON: Comparison is made with prior study dated August 05, 2020. FINDINGS: Lumbar Spine (L1-L4): g/cm2 (1.286) / T-score (2.2) / Z-score (4.7) Findings are suggestive of normal bone density with a low fracture risk. Left Femur Total: g/cm2 (0.958) / T-score (0.1) / Z-score (2.0) Left Femoral Neck: g/cm2 (0.688) / T-score (-1.4) / Z-score (0.7) Right Femur Total: g/cm2 (0.923) / T-score (-0.2) / Z-score (1.7) Right Femoral Neck: g/cm2 (0.699) / T-score (-1.3) / Z-score (0.8) The T-Scores on the most recent prior examination were: Lumbar Spine (L1-L4): There has been improvement of bone density since the previous examination. Left Femur Total: which represents an improvement of 10.8%. Right Femur Total: which represents an improvement of 9.3%. BD/Dexa Bone Density Study IMPRESSION: The patient is considered osteopenic as outlined below according to World [place] Organization (WHO) criteria with a low fracture risk. There has been improvement of bone density since the previous examination. Reference Information: The T-score is the number of standard deviations above or below the standard which is normal for young adults at their peak bone mineral density. The World Health Organization (WHO) interprets the T-scores as follows: Above -1 Normal bone density Between -1 and -2.5 Osteopenia Equal to / or below -2.5 Osteoporosis As a practical clinical guideline, osteopenia may be graded as follows: Mild -1 through -1.5 Moderate -1.6 through -2.0 Severe -2.1 through -2.4 The Z-score is the number of standard deviations above or below age-matched controls. A Z-score of less than -1.5 would be considered abnormal. References: 1. NIH Osteoporosis and Related Bone Diseases www osteo.org 2. International Society for Clinical Densitometry www iscd.org 3. National Osteoporosis Foundation www nof.org Electronically Signed: Geovani Orlando MD at 15:16 EST ,
== END | disposition home or self-care (01) ==
LOC: OPBD 09:50
PROVIDERS: PCP Internal Medicine; Visit Provider Nurse Practitioner Women's Health
DX: Z12.31 Encounter for screening mammogram for malignant neoplasm of breast (principal); Z78.0 Asymptomatic menopausal state; Z80.3 Family history of malignant neoplasm of breast
CPT/HCPCS: 77063; 77067; 77080

== ENCOUNTER → 2022-12-27 | Outpatient (CLI) | payer MEDICARE, OTHER, SELFPAY ==
[2022-12-27 17:37] LABS: Partial Thromboplast Time 28.1 Seconds (24.1-36.2); Prothrombin Time (Protime)PT. 12.9 SECONDS (11.7-14.9)
[2022-12-27 17:56] LABS: AST(SGOT) 27 U/L (15-37); Alanine Aminotransfer ALT/SGPT 27 U/L (13-56); Albumin, Serum 3.6 g/dL (3.2-5.0); Alkaline Phosphatase 130 U/L (45-117); Bilirubin, Direct 0.15 mg/dL (0.00-0.30); Ferritin 112 ng/mL (8-252); GGTP 27 U/L (5-55); Globulin 4.5 g/dL (2.2-4.2); Protein, Total 8.1 g/dL (6.4-8.2)
[2022-12-29 05:07] LABS: AFP, Tumor Marker 4.2 ng/mL (0.0-9.2)
== END | disposition home or self-care (01) ==
PROVIDERS: PCP Internal Medicine; Referring Provider Internal Medicine Gastroenterology; Visit Provider Internal Medicine Gastroenterology
DX: K74.00 Hepatic fibrosis, unspecified (principal)
CPT/HCPCS: 36415; 80076; 82105; 82728; 82977; 85610; 85730

== ENCOUNTER → 2023-01-05 | Outpatient (CLI) | payer MEDICARE, OTHER, SELFPAY ==
--- NOTE | 2023-01-05 09:35 | US_ITS ---
STUDY: ABDOMINAL ULTRASOUND - RIGHT UPPER QUADRANT; ELASTOGRAPHY REASON FOR VISIT: Female, 77 years old. . History of cirrhosis and fatty infiltration of the liver. TECHNIQUE: Ultrasound evaluation of the right upper quadrant was performed with real-time and static villar-scale imaging. Point quantification shear wave elastography was performed ([employer]). TECHNICAL QUALITY: Adequate. COMPARISON: Comparison is made with prior study dated December 30, 2020. FINDINGS: Liver: The liver measures 13.5 cm. There is normal echogenicity of the liver. The bile ducts are within normal limits. There is hepatic color flow. The direction of portal flow is hepatopetal. There is no demonstrated mass lesion. Median liver stiffness measured 9.3 kPa. Gallbladder: The patient is status post cholecystectomy. Common Bile Duct (C.B.D.): The common bile duct measures 4.4 mm. Pancreas: There is normal echogenicity of the visualized pancreas. There is no demonstrated pancreatic mass or cyst. Right Kidney: Normal size of the right kidney. The right kidney measures 11.1 cm x 5.5 cm x 5.6 cm. Normal renal cortex. The right cortex measures 1.6 cm. 3 cysts are seen. The largest measures 3.6 cm x 4.5 cm x 3.2 cm. There is no right hydronephrosis. US/ABD Limited w/ Elastography IMPRESSION: 1. Liver stiffness measures 9.3 kPa compatible with F2-F3 (Mild to moderate liver fibrosis) Metavir score. Electronically Signed: Geovani Orlando MD at 15:22 EDT ,
== END | disposition home or self-care (01) ==
LOC: US 09:34
PROVIDERS: PCP Internal Medicine; Referring Provider Internal Medicine Gastroenterology; Visit Provider Internal Medicine Gastroenterology
DX: K74.3 Primary biliary cirrhosis (principal)
CPT/HCPCS: 76705; 76981

== ENCOUNTER → 2023-06-28 | Outpatient (CLI) | payer MEDICARE, OTHER, SELFPAY ==
--- OUTSIDE RECORDS SUMMARY | 2023-06-28 16:01 | XMS RPT_ITS | CCD ---
Author Name Unknown Address [address] [place] [address] Organization [facility] Care Team Providers [facility] [place] [facility] Supervisor Name Role Phone Maisha Sky Juli Unavailable Unavailab Griffin Craven Unavailable Unavailable LatouSarah reyez Unavailable Unavailable SARAH RUEDA MD Consulting Unavailable SARAH RUEDA MD Admitting Unavailable SARAH RUEDA MD Attending Unavailable SARAH RUEDA MD Primary Care Unavailable PROVIDER, UNKNOWN Consulting Unavailable PROVIDER, UNKNOWN Consulting Unavailable PROVIDER, UNKNOWN Consulting Unavailable LATSARAH LAWSON MD Consulting Unavailable LU MCGRAW DPM Admitting Unavailable LU MCGRAW DPM Attending Unavailable LU MCGRAW DPM Primary Care Unavailable PROVIDER, UNKNOWN Consulting Unavailable PROVIDER, UNKNOWN Consulting Unavailable PROVIDER, UNKNOWN Consulting Unavailable SARAH RUEDA MD Consulting Unavailable LATSARAH LAWSON MD Attending Unavailable SARAH RUEDA MD Primary Care Unavailable SARAH RUEDA MD Admitting Unavailable PROVIDER, UNKNOWN Consulting Unavailable PROVIDER, UNKNOWN Consulting Unavailable PROVIDER, UNKNOWN Consulting Unavailable SARAH RUEDA MD Consulting Unavailable SARAH RUEDA MD Attending Unavailable SARAH RUEDA MD Primary Care Unavailable LATSARAH LAWSON MD Admitting Unavailable PROVIDER, UNKNOWN Consulting Unavailable PROVIDER, UNKNOWN Consulting Unavailable PROVIDER, UNKNOWN Consulting Unavailable SARAH RUEDA MD Primary Care Unavailable SARAH RUEDA MD Consulting Unavailable LUISOUSARAH Reyez MD Attending Unavailable LATSARAH LAWSON MD Admitting Unavailable PROVIDER, UNKNOWN Consulting Unavailable PROVIDER, UNKNOWN Consulting Unavailable PROVIDER, UNKNOWN Consulting Unavailable SARAH RUEDA MD Primary Care Unavailable SARAH RUEDA MD Consulting Unavailable SARAH RUEDA MD Admitting Unavailable LATSARAH LAWSON MD Attending Unavailable PROVIDER, UNKNOWN Consulting Unavailable PROVIDER, UNKNOWN Consulting Unavailable PROVIDER, UNKNOWN Consulting Unavailable ALEJANDRO COCHRAN DO Attending Unavailable ALEJANDRO COCHRAN DO Admitting Unavailable ALEJANDRO COCHRAN DO Primary Care Unavailable SARAH RUEDA MD Consulting Unavailable PROVIDER, UNKNOWN Consulting Unavailable PROVIDER, UNKNOWN Consulting Unavailable PROVIDER, UNKNOWN Consulting Unavailable SARAH RUEDA MD Consulting Unavailable RACHEL, APARNA PAC Admitting Unavailable RACHEL, APARNA PAC Attending Unavailable RACHEL, APARNA PAC Primary Care Unavailable PROVIDER, UNKNOWN Consulting Unavailable PROVIDER, UNKNOWN Consulting Unavailable PROVIDER, UNKNOWN Consulting Unavailable LARISA TASNG MD Attending UnavailLARISA Brooks MD Admitting Unavailabl e SARAH RUEDA MD Consulting Unavailable LARISA TSANG MD Primary Care Unavailabl e PROVIDER, UNKNOWN Consulting Unavailable PROVIDER, UNKNOWN Consulting Unavailable PROVIDER, UNKNOWN Consulting Unavailable Allergies Allergy Classification Reported Allergen(s) Allergy Type Date of Onset Reaction(s) Facility (1 source) cefuroxime Drug Allergy 04-26-2017 [facility] (1 source) piroxicam Drug Allergy 04-26-2017 [facility] (1 source) FLURESS drug allergy 04-26-2017 [facility] (1 source) atb's Drug allergy (disorder) [facility] Repository Medications Completed/Discontinued Medications Medication Drug Class(es) Dates Sig (Normalized) Sig (Original) ascorbic acid / beta carotene / cuprous oxide / lutein / sodium selenate / vitamin E / zinc oxide (1 source) Start: 04-26-2017 take 1 tablet by mouth once daily OCUVITE ADULT 50+ CAPS One tablet by mouth daily MULTIPLE VITAMINS-MINERALS [id number] Maisha Cidsen aspirin (1 source) Nonsteroidal Anti-inflammatory Drug Start: 04-26-2017 take 1 tablet by mouth once daily ASPIRIN 81 81 MG CHEW One tablet by mouth daily ASPIRIN [id number] Maisha Juli Andriessen MULTIPLE VITAMIN (1 source) Start: 04-26-2017 take 1 tablet by mouth once daily MULTI-VITAMINS TABS One tablet by mouth daily MULTIPLE VITAMIN [id number] Maisha Bustos Andjose pravastatin sodium 40 mg oral tablet (1 source) HMG-CoA Reductase Inhibitor Start: 04-26-2017 take 1 tablet by mouth once daily PRAVACHOL 40 MG TABS One tablet by mouth daily PRAVASTATIN SODIUM [id number] Maisha Sky ursodiol 500 mg oral tablet (1 source) Start: 04-26-2017 take 1 tablet by mouth three times daily URSODIOL 500 MG TABS One tablet by mouth three times daily URSODIOL [id number] Maisha Sky Problems Active Problems Problem Classification Problem Date Documented Da te Episodic/Chronic Disorders of lipid metabolism (3 sources) Hyperlipidemia, unspecified; Translations: [Hyperlipidemia, unspecified] Onset: 03-15-2023 Chronic Other liver diseases (1 source) Primary biliary cirrhosis; Translations: [Primary biliary cirrhosis] Onset: 04-01-2023 Chronic Other nervous system disorders (1 source) Polyneuropathy, unspecified; Translations: [Polyneuropathy, unspecified] Onset: 03-15-2023 Chronic Other screening for suspected conditions (not mental disorders or infectious disease) (2 sources) Other specified abnormal findings of blood chemistry; Translations: [Other specified abnormal findings of blood chemistry] Onset: 09-20-2022 Episodic Unclassified (1 source) No current problems or disability 04-26-2017 Unclassified (1 source) Unknown / UNK(Unknown) Onset: 12-30-2017 Unclassified (1 source) Other low back pain; Translations: [Other low back pain] Onset: 09-07-2022 Past or Other Problems Problem Classification Problem Date Documented Da te Episodic/Chronic Acquired foot deformities (1 source) Foot drop, left foot; Translations: [Foot drop, left foot] Onset: 11-03-2022 Episodic Other bone disease and musculoskeletal deformities (1 source) Other specified disorders of bone density and structure, unspecified site; Translations: [Other specified disorders of bone density and structure, unspecified site] Onset: 07-27-2022 Episodic Spondylosis; intervertebral disc disorders; other back problems (7 sources) Radiculopathy, lumbar region; Translations: [Spinal stenosis, lumbar region without neurogenic claudication] Onset: 09-07-2022 Episodic Unclassified (1 source) PRIMARY BILIARY CIRRHOSIS~ Onset: 12-30-2017 Results Test Name Value Interpretation Reference Range Facil ity Encounters Encounter Date Encounter Type Care Provider Facility Start: 04-06-2023 End: 04-06-2023 [facility]: [facility] 03-15-2023 End: 03-15-2023 ambulatory SARAH Ferro [facility] Start: 11-03-2022 End: 11-22-2022 ambulatory ALJEANDRO DO GARCIATS [facility] Start: 10-08-2022 End: 10-08-2022 ambulatory SARAH Ferro [facility] Start: 10-07-2022 End: 10-07-2022 ambulatory SARAH Ferro [facility] Start: 09-20-2022 End: 09-20-2022 ambulatory SARAH Ferro [facility] Start: 09-07-2022 End: 10-21-2022 ambulatory SARAH Ferro [facility] Start: 07-27-2022 End: 07-27-2022 [facility] Start: 12-30-2017 Patient encounter Griffin Doe bojorquezty:[facility] Plan of Treatment Date Care Activity Detail Author Kashmir montano's Care Payers Date Payer Category Payer Medicare [id number] 1945 Unknown [id number] 2.16.8 [id number] 1945 Unknown [id number] 2.16.8 [id number] 1945 Unknown [id number] 2.16.8 [id number] 1945 Unknown [id number] 2.16.84 [id number]. 1945 Unknown [id number] 2.16.84 [id number] 1945 Unknown [id number] 2.16.84 [id number] 1945 Unknown [id number] 2.16.84 [id number] 1945 Unknown [id number] 2.16.84 [id number] 1945 Unknown [id number] 2.16.84 [id number] Medicare [id number] Unknown [id number] Summary Purpose Family History No Family History Records FoundNo Family History Records FoundNo Family History Records FoundNo Family History Records Found Advance Directives No Advanced Directives Records FoundNo Advanced Directives Records FoundNo Advanced Directives Records FoundNo Advanced Directives Records Found Additional Source Comments INFORMATION SOURCE (unrecogn ized section and content) DATE CREATED AUTHOR AUTHOR'S ORGANIZ ATION 01/26/2021 [facility] DATE CREATED AUTHOR AUTHOR'S ORGANIZ ATION 08/01/2022 [facility] DATE CREATED AUTHOR AUTHOR'S ORGANIZ ATION 04/08/2023 [facility] FOR RECORDS PERTAINING TO PATIENTS WHO ARE OR HAVE BEEN ENROLLED IN A CHEMICAL DEPENDENCY/SUBSTANCEABUSE PROGRAM, SOME INFORMATION MAY BE OMITTED. This clinical summary was aggregated from multiple sources. Caution should be exercised in using it in the provision of clinical care. This summary normalizes information from multiple sources, and as a consequence, information in this document may materially change the coding, format and clinical context of patient data. In addition, data may be omitted in some cases. CLINICAL DECISIONS SHOULD BE BASED ON THE PRIMARY CLINICAL RECORDS. [employer] [facility]. provides no warranty or guarantee of the accuracy or completeness of information in this document.
[2023-06-28 17:27] LABS: Hematocrit 40.5 % (37-47); Hemoglobin 12.9 g/dL (12.0-15.0); Mean Corp Hgb Conc 31.9 g/dL (32-36); Mean Corpuscular Volume 97.4 fL (81-99); Mean Platelet Vol. 10.2 fl (6.2-12.0); Platelet Count 270 K/mm3 (150-450); RBC Distribution Width CV 12.4 % (11.6-14.6); RBC Distribution Width SD 44.3 fl (35.1-43.9); Red Blood Count 4.16 M/mm3 (4.2-5.4); White Blood Count 6.3 K/mm3 (4.4-11.0)
[2023-06-28 17:43] LABS: AST(SGOT) 25 U/L (15-37); Alanine Aminotransfer ALT/SGPT 29 U/L (13-56); Albumin, Serum 3.3 g/dL (3.2-5.0); Alkaline Phosphatase 178 U/L (45-117); Bilirubin, Direct 0.14 mg/dL (0.00-0.30); GGTP 40 U/L (5-55); Globulin 4.3 g/dL (2.2-4.2); Protein, Total 7.6 g/dL (6.4-8.2)
[2023-06-28 17:48] LABS: Prothrombin Time (Protime)PT. 13.7 SECONDS (11.7-14.9)
[2023-06-28 17:49] LABS: Partial Thromboplast Time 29.9 Seconds (24.1-36.2)
[2023-06-30 08:11] LABS: AFP, Tumor Marker 4.1 ng/mL (0.0-9.2)
== END | disposition home or self-care (01) ==
LOC: MTLAB 14:03
PROVIDERS: PCP Internal Medicine; Referring Provider Internal Medicine Gastroenterology; Visit Provider Internal Medicine Gastroenterology
DX: K74.5 Biliary cirrhosis, unspecified (principal)
CPT/HCPCS: 36415; 80076; 82105; 82977; 85027; 85610; 85730

== ENCOUNTER → 2023-08-19 | Outpatient (CLI) | payer MEDICARE, OTHER, SELFPAY ==
--- NOTE | 2023-08-19 09:48 | BI_ITS ---
MAMMOGRAPHY - BILATERAL SCREENING 3-D TOMOSYNTHESIS REASON FOR EXAM: Female, 77 years old. screening mammogram PERTINENT HISTORY: No significant family history. TECHNIQUE: 2-D mammograms and 3-D Tomosynthesis of the breast (s) were performed. CAD was performed. COMPARISON: 08/17/2022 FINDINGS: The breast composition is heterogeneously dense that can obscure small breast masses. Scattered benign calcifications are seen. No dense spiculated masses or suspicious microcalcifications are identified. No architectural distortion is identified. There is no skin thickening or retraction. There has been no significant change since the prior study. BI/SCRN MAMM (CAD)W/SONIA BILAT IMPRESSION: No mammographic signs of malignancy. Routine yearly mammograms recommended. ASSESSMENT CATEGORY: BIRADS Category 1: Negative. A letter regarding these results will be sent to the patient by the facility within 30 days. FOLLOW UP RECOMMENDATION: Yearly follow up mammogram recommended. (A) Approximately 10% of breast cancers are not detected by mammography. A normal mammogram should not delay biopsy of a clinically suspicious abnormality. Electronically Signed: Pedrito Darling MD at 14:10 EST ,
== END | disposition home or self-care (01) ==
LOC: OPBI 09:47
PROVIDERS: PCP Internal Medicine; Referring Provider Nurse Practitioner Women's Health; Visit Provider Nurse Practitioner Women's Health
DX: Z12.31 Encounter for screening mammogram for malignant neoplasm of breast (principal)
CPT/HCPCS: 77063; 77067

== ENCOUNTER → 2023-11-18 | Outpatient (CLI) | payer MEDICARE, OTHER, SELFPAY ==
--- NOTE | 2023-11-18 09:17 | US_ITS ---
STUDY: ULTRASOUND BREAST - RIGHT REASON FOR EXAM: Female, 77 years old. Painful lump in the upper inner quadrant of the right breast. TECHNIQUE: Axial and longitudinal images of the RIGHT breast were performed with a high resolution ultrasound transducer. # OF IMAGES: 35 COMPARISON: Comparison is made with prior mammogram dated August 19, 2023. FINDINGS: RIGHT Breast: The upper inner quadrant of the right breast was examined with ultrasound. There is heterogeneously dense fibroglandular tissue. No sonographic abnormality is seen. US/Breast Limited Unilateral IMPRESSION: No sonographic abnormality is seen. ASSESSMENT CATEGORY: BIRADS Category 1: Negative. A letter regarding these results will be sent to the patient by the facility within 30 days. Electronically Signed: Geovani [place] MD at 11:08 EDT ,
== END | disposition home or self-care (01) ==
LOC: OPBI 09:16
PROVIDERS: PCP Internal Medicine; Referring Provider Nurse Practitioner Women's Health; Visit Provider Nurse Practitioner Women's Health
DX: N64.4 Mastodynia (principal); N63.10 Unspecified lump in the right breast, unspecified quadrant
CPT/HCPCS: 76642

== ENCOUNTER → 2024-08-21 | Outpatient (CLI) | payer MEDICARE, OTHER, SELFPAY ==
--- NOTE | 2024-08-21 10:00 | BI_ITS ---
PROCEDURE: SCRN MAMM (CAD)W/SONIA BILAT REASON FOR EXAM: F, Age 78 y/o , SCREENING FOR BREAST CANCER. Family history of breast cancer in her mother in her 70s and 2 paternal aunts. TECHNIQUE: Bilateral screening digital breast tomosynthesis with 2D and 3D images. Computer aided detection. COMPARISON: 08/19/2023 FINDINGS: There are scattered areas of fibroglandular density. No suspicious masses, areas of developing architectural distortion, or suspicious calcifications. BI/SCRN MAMM (CAD)W/SONIA BILAT IMPRESSION: There is no mammographic evidence of malignancy. BI-RADS 1: NEGATIVE. RECOMMEND ANNUAL MAMMOGRAPHIC SCREENING. Follow-up code: Routine Follow-up The patient will be notified of the results by letter. Reading Location: [id number]
== END | disposition home or self-care (01) ==
PROVIDERS: PCP Internal Medicine; Referring Provider Nurse Practitioner Family; Visit Provider Nurse Practitioner Family
DX: Z12.31 Encounter for screening mammogram for malignant neoplasm of breast (principal); Z80.3 Family history of malignant neoplasm of breast
CPT/HCPCS: 77063; 77067

== ENCOUNTER → 2024-10-15 | Outpatient (CLI) | payer MEDICARE, OTHER, SELFPAY ==
[2024-10-15 17:46] LABS: Hematocrit 39.1 % (37-47); Hemoglobin 12.6 g/dL (12.0-15.0); Mean Corp Hgb Conc 32.2 g/dL (32-36); Mean Corpuscular Hgb 31.2 pg (27.0-32.0); Mean Corpuscular Volume 96.8 fL (81-99); Mean Platelet Vol. 10.6 fl (6.2-12.0); Platelet Count 209 K/mm3 (150-450); RBC Distribution Width CV 12.4 % (11.6-14.6); RBC Distribution Width SD 44.2 fl (35.1-43.9); Red Blood Count 4.04 M/mm3 (4.2-5.4); White Blood Count 3.7 K/mm3 (4.4-11.0)
[2024-10-15 18:05] LABS: ALB/GLOB Ratio 1.1 RATIO (0.9-2.4); AST(SGOT) 34 U/L (<=31); Alanine Aminotransfer ALT/SGPT 29 U/L (<=34); Albumin, Serum 3.9 g/dL (3.4-4.8); Alkaline Phosphatase 146 U/L (35-104); Anion Gap 11 (5-15); BUN 19 mg/dL (4-19); BUN/Creat Ratio 19.8 RATIO (10-20); Calcium,Total 9.5 mg/dL (7.6-11.0); Carbon Dioxide 23.8 mmol/L (21.0-32.0); Chloride 102 mmol/L (98-108); Creatinine, Serum 0.97 mg/dL (0.70-1.20); EST Glomerular Filtration Rate 60 (>60); Globulin 3.5 g/dL (2.2-4.2); Glucose 90 mg/dL (70-99); Potassium 4.2 mmol/L (3.3-5.1); Protein, Total 7.5 g/dL (5.9-8.4); Sodium Level 137 mmol/L (133-145)
[2024-10-15 19:02] LABS: International Normalized Ratio 1.1; Prothrombin Time (Protime)PT. 14.1 SECONDS (11.7-14.9)
[2024-10-15 19:03] LABS: Partial Thromboplast Time 31.8 Seconds (24.1-36.2)
[2024-10-17 04:07] LABS: AFP, Tumor Marker 3.6 ng/mL (0.0-9.2); GGTP 21 IU/L (0-60)
== END | disposition home or self-care (01) ==
LOC: MTLAB 14:38
PROVIDERS: PCP Internal Medicine; Referring Provider Internal Medicine Gastroenterology; Visit Provider Internal Medicine Gastroenterology
DX: K74.00 Hepatic fibrosis, unspecified (principal)
CPT/HCPCS: 36415; 80053; 82105; 82977; 85027; 85610; 85730

== ENCOUNTER → 2025-01-08 | Outpatient (CLI) | payer MEDICARE, OTHER, SELFPAY ==
--- NOTE | 2025-01-08 09:46 | US_ITS ---
PROCEDURE: ABD LIMITED W/ ELASTOGRAPHY REASON FOR EXAM: PBC COMPARISON: None. TECHNIQUE: Right upper quadrant abdominal ultrasound. [facility]lon ElastQ Imaging shear wave elastography for non-invasive assessment of liver tissue stiffness. [employer]lon EPIQ Elite. FINDINGS: LIVER: Size: Unremarkable Length: 14.8 cm Echotexture: Normal Contour: Normal Lesions: None identified Elastography: EQI Med: 8.9 kPa EQI Med Addison: 1.69 m/s IQR/Med: 22 %* GALLBLADDER: Surgically absent. COMMON BILE DUCT: Normal measuring 6 mm. . PANCREAS: Normal Visualized portions of the right kidney are unremarkable. 2 cysts are seen in the right kidney. The largest cyst measures 3.7 cm 2.9 cm 2.9 cm. No right upper quadrant ascites. US/ABD Limited w/ Elastography IMPRESSION: Moderate hepatic fibrosis. Status post cholecystectomy. Right renal cysts. Reference Values: SRU <1.37 m/s (5.7kPa): No to mild fibrosis 1.37 m/s - 2.2 m/s: Moderate to severe fibrosis >2.2 m/s (15kPa): Significant fibrosis / cirrhosis METAVIR Score F2 or higher: 1.34 m/s (5.7kPa) F3 or higher: 1.55 m/s (7.3kPa) F4: 1.80 m/s (10kPa) * If the IQR/Med is >30%, the variance in the measurements is a large and the a ccuracy of the measurement may be in question. Reading Location: [facility]
== END | disposition home or self-care (01) ==
LOC: US 09:41
PROVIDERS: PCP Internal Medicine; Referring Provider Internal Medicine Gastroenterology; Visit Provider Internal Medicine Gastroenterology
DX: K74.5 Biliary cirrhosis, unspecified (principal)
CPT/HCPCS: 76705; 76981